=== PATIENT | male | born 1955 | race Caucasian/White ===

== ENCOUNTER 2022-07-20 18:44 | Inpatient (IN) | payer MEDICARE, OTHER ==
[~2022-07-20] VITALS: Ht 182.9 cm; Wt 101.8 kg
[2022-07-20] MEDS ORDERED: LORazepam 0.5 MG (ATIVAN) TABLET PO PRN (19:45)
[2022-07-20] MEDS ORDERED: ONDANSETRON 4 MG/2 ML (SDV) Z0FRAN IV PRN (19:45)
[2022-07-20] MEDS ORDERED: CALCIUM CARBONATE 500 MG (TUMS) TAB.CHEW PO PRN (19:45)
[2022-07-20] MEDS ORDERED: HYDROmorphone 2 MG/ML VIAL (DILAUDID) IV PRN (19:45)
[2022-07-20] MEDS ORDERED: diphenhydrAMINE 25 MG TAB (BENADRYL) PO PRN (19:45)
[2022-07-20] MEDS ORDERED: polyethylene glycoL POWDER 17 GM (MIRALAX) PACK PO PRN (19:45)
[2022-07-20] MEDS ORDERED: MELATONIN 3 MG TABLET PO PRN (19:45)
[2022-07-20] MEDS ORDERED: NS IV 500 ML 500 ML IV PRN (19:45)
[2022-07-20] MEDS ORDERED: DexMEDEtomidine 250 ML DRIP 250 ML IV SCH (19:45)
[2022-07-20] MEDS ORDERED: ANTACID SUSP 30 ML UDC (MYLANTA) PO PRN (19:45)
[2022-07-20] MEDS ORDERED: ONDANSETRON 4 MG (ZOFRAN) ORAL DISSOLVE TAB PO PRN (19:45)
[2022-07-20] MEDS ORDERED: diphenhydrAMINE 50 MG/ML INJ (BENADRYL) IVP PRN (19:45)
[2022-07-20] MEDS ORDERED: LACTULOSE SYRUP 10GM/15ML (ENULOSE) 30ML UDC PO PRN (19:45)
[2022-07-20] MEDS ORDERED: BISACODYL 10 MG SUPP (DULCOLAX) PR PRN (19:45)
[2022-07-20] MEDS ORDERED: LORazepam INJ 2 MG/ML (ATIVAN) VIAL IVP PRN (19:45)
[2022-07-20] MEDS ORDERED: LIDOCAINE UROJET 2% GEL 10 ML PKG TOP ONE (19:45)
[2022-07-20] MEDS ORDERED: ACETAMINOPHEN 325 MG TABLET PO PRN (19:45)
[2022-07-20] MEDS ORDERED: MILK OF MAGNESIA 400 MG/5 ML 30 ML UDC PO PRN (19:45)
--- NOTE | 2022-07-20 19:56 | History & Physical ---
History of Present Illness HPI/Chief Complaint CC: Acute hypoxic and hypercapneic respiratory failure with new onset AF HPI: This is a 66yoWM clinic patient of Dr Yu in [facility] and Dr [facility] who presented to the [facility] with dyspnea for several days. He was found to have new onset AF and findings consistent with volume overload with leg edema and pulmonary edema on CXR. Patient was taking Mucinex and he felt that made his dyspnea worse. Productive sputum of yellow phlem. 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 Nebs and O2 will be maintained. He smokes 1ppd and is and moved here from [place] 2 years ago and he is retired from 28 years with [employer]. D dimer was normal for his age at 0.94 and BNP normal at 45. Source: patient, family, RN/MD Exam Limitations: no limitations Date Seen 07/20/22 Time Seen by a Provider: 21:00 Attending Physician PCP Admitting Physician: Nora Goncalves DO Attending Physician: Nora Goncalves DO Referring Physician Date of Admission Home Medications & Allergies Home Medications Reviewed patient Home Medication Reconciliation performed by pharmacy medication reconciliations automation control technician and/or nursing. Patients Allergies have been reviewed. Allergies Allergies Coded Allergies No Known Drug Allergies (Unverified07/20/22) Past Mtbrydo-Bkxxja-Bsijmx Hx Past Med/Social Hx: Reviewed Nursing Past Med/Soc Hx, Reviewed and Corrections made Patient Social History Marrital Status: Employed/Student: retired Alcohol Use: Denies Use Recreational Drug Use: No Smoking Status: Current Everyday Smoker Past Medical History Respiratory: COPD Cardiac: High Cholesterol, Hypertension Review of Systems Constitutional: see HPI, malaise, weakness EENTM: no symptoms reported Respiratory: dyspnea on exertion, short of breath Cardiovascular: no symptoms reported Gastrointestinal: no symptoms reported Genitourinary: no symptoms reported Musculoskeletal: no symptoms reported Skin: no symptoms reported Psychiatric/Neurological: No Symptoms Reported All Other Systems Reviewed Negative Unless Noted: Yes Physical Exam Physical Exam Vital Signs Vital Signs - First Documented 07/21/22 00:00 FiO2 40 Capillary Refill : Height, Weight, BMI Height: '" Weight: lbs. oz. kg; BMI Method: General Appearance: WD/WN, Anxious, Chronically ill, Moderate Distress Eyes: Bilateral Eye Normal Inspection, Bilateral Eye PERRL HEENT: PERRL/EOMI, Normal ENT Inspection, Pharynx Normal Neck: Full Range of Motion, Normal Inspection, Non Tender, Supple, Carotid Bruit Respiratory: Chest Non Tender, No Respiratory Distress, Accessory Muscle Use, Crackles, Decreased Breath Sounds, Rales, Wheezing Cardiovascular: No Edema, No Gallop, No JVD, No Murmur, Normal Peripheral Pulses, Irregularly Irregular Gastrointestinal: Normal Bowel Sounds, No Organomegaly, No Pulsatile Mass, Non Tender, Soft Back: Normal Inspection, No CVA Tenderness, No Vertebral Tenderness Extremity: Normal Capillary Refill, Normal Inspection, Normal Range of Motion, Non Tender, No Calf Tenderness, No Pedal Edema Neurologic/Psychiatric: Alert, Oriented x3, No Motor/Sensory Deficits, Normal Mood/Affect, child care counselor II-XII Norm as Tested Skin: Normal Color, Warm/Dry Lymphatic: No Adenopathy Results Results/Procedures Labs Patient resulted labs reviewed. Assessment/Plan Admission Diagnosis Assessment: Acute hypoxic and hypercapneic respiratory failure New onset AF Volume overload Smoker AECOPD Bacterial bronchitis HTN HLP DM Plan: ICU BiPAP Nebs O2 ABG and CXR on arrival ICS Singulair Lovenox 1mg/kg ECHO tomorrow Admission Status: Inpatient Order (span 2 midnights) Reason for Inpatient Admission: resp failure NORA GONCALVES DO Jul 20, 2022 19:56
--- NOTE | 2022-07-20 21:29 | Tele-ICU Progress Note ---
Progress Note 66M with COPD, HTN, HLD, DM admitted with new afib and signs of heart failure. Presented to outside ED with several days dyspnea and peripheral edema. In ED found to have pulm edema as well. Has had cough productive of yellow sputum. On arrival to ICU, patient is comfortable. Sitting up in chair. - afib: new onset. Therapuetic lovenox given. Currently rate controlled in 80s with BP 168/127 - fluid overload: concerning for new heart failure. Cardiology consulted. Echo in AM. - COPD: neps, bipap PRN (currently on HFNC), supportive care. Solumedrol, singulair. - cough: with yellow sputum production. Empiric cefepime initiated for possible bacterial bronchitis. - DM: insuln sliding scale - tobacco dependence: replacement ordered. Will review CXR and labs when available. Patient assessed using real time audio visual communication system. CCT 13 min Focused Exam Height, Weight, BMI Height: '" Weight: lbs. oz. kg; BMI Method: REJI CARO MD Jul 20, 2022 21:29
[2022-07-20] MEDS ORDERED: RT-ALBUTEROL/IPRATROPIUM 3 ML (DUONEB) VIAL INH PRN (21:30)
--- NOTE | 2022-07-20 22:01 | Diagnostic Imaging Report ---
INDICATION: Dyspnea EXAMINATION: Chest 07/20/2022 COMPARISON: None. FINDINGS: The heart is prominent. Pulmonary vasculature unremarkable. There are no infiltrates or effusions with chronic interstitial changes consistent with scar or atelectasis at the bases. No pneumothorax. IMPRESSION: 1. Chronic findings. No acute cardiopulmonary process. Dictated by: Dictated on workstation # [id number]
[2022-07-20] MEDS ORDERED: LABETALOL HCL 20 MG/4 ML VIAL IV ONE (22:15)
[2022-07-20] MEDS ORDERED: LABETALOL HCL 20 MG/4 ML VIAL ONE (22:21)
[2022-07-20] MEDS: DOCUSATE SODIUM 100 MG (COLACE) CAP PO SCH (22:24)
[2022-07-20] MEDS: SENNOSIDES 8.6 MG (SENOKOT) TAB PO SCH (22:24)
[2022-07-20] MEDS: MONTELUKAST 10 MG (SINGULAIR) TAB PO SCH (22:24)
[2022-07-20] MEDS: inSUlin ASPART (NovoLOG) 1 UNIT/0.01 ML (CHARGE PER UNIT) SC SCH (22:39)
[2022-07-20] MEDS: RT-ALBUTEROL/IPRATROPIUM 3 ML (DUONEB) VIAL INH SCH (22:46)
[2022-07-20] MEDS: methylPREDNISolone 125 MG (Solu-MEDROL) VIAL IVP SCH (23:43)
[2022-07-20] MEDS: CEFEPIME INJECTION 1,000 MG in NS (IVPB) 50 ML IV SCH (23:43)
[2022-07-20 23:46] LABS: ABG OXYGEN SATURATION 94 % (94-100); ABG PCO2 61 MMHG (35-45); ABG PO2 66 MMHG (79-93); ABG TCO2 32.8 MMOL/L (21.0-31.0)
[2022-07-20 23:47] LABS: ALLENS TEST YES-POS; INSPIRED O2 6L; VENTILATOR NO
[2022-07-20 23:48] LABS: ABG PH 7.32 (7.37-7.43); PATIENT TEMP 36.5
[2022-07-21 00:09] VITALS: BP 167/102
[2022-07-21] MEDS: RT-ALBUTEROL/IPRATROPIUM 3 ML (DUONEB) VIAL INH SCH ×5 (02:41→19:02)
[2022-07-21 05:35] LABS: ABG BASE EXCESS 4.8 MMOL/L (-2.5-2.5); ABG OXYGEN SATURATION 94 % (94-100); ABG PCO2 58 MMHG (35-45); ABG PO2 64 MMHG (79-93); ABG TCO2 32.2 MMOL/L (21.0-31.0)
[2022-07-21 05:36] LABS: ALLENS TEST YES-POS; INSPIRED O2 6L; PATIENT TEMP 36.4; VENTILATOR NO
[2022-07-21 05:37] LABS: ABG PH 7.34 (7.37-7.43)
[2022-07-21] MEDS: CEFEPIME INJECTION 1,000 MG in NS (IVPB) 50 ML IV SCH ×4 (05:38→23:42)
[2022-07-21] MEDS: methylPREDNISolone 125 MG (Solu-MEDROL) VIAL IVP SCH ×4 (05:40→23:42)
[2022-07-21 05:53] LABS: BASOPHILS % (AUTO) 0 % (0-10); EOSINOPHILS % (AUTO) 0 % (0-10); HEMATOCRIT 45 % (40-54); HEMOGLOBIN 14.3 g/dL (13.3-17.7); LYMPHOCYTES # (AUTO) 0.5 10^3/uL (1.0-4.0); LYMPHOCYTES % (AUTO) 6 % (12-44); MEAN CORPUSCULAR HEMOGLOBIN 28 pg (25-34); MEAN CORPUSCULAR HGB CONC 32 g/dL (32-36); MEAN CORPUSCULAR VOLUME 87 fL (80-99); MEAN PLATELET VOLUME 10.8 fL (9.0-12.2); MONOCYTES # (AUTO) 0.1 10^3/uL (0.0-1.0); MONOCYTES % (AUTO) 1 % (0-12); NEUTROPHILS # (AUTO) 7.8 10^3/uL (1.8-7.8); NEUTROPHILS % (AUTO) 92 % (42-75); PLATELET COUNT 190 10^3/uL (130-400); WHITE BLOOD COUNT 8.5 10^3/uL (4.3-11.0)
[2022-07-21] MEDS ORDERED: ENOXAPARIN 100 MG/1 ML (LOVENOX) SYR SC SCH ×2 (06:00)
[2022-07-21 06:44] LABS: ALBUMIN 3.9 GM/DL (3.2-4.5); BILIRUBIN,TOTAL 0.9 MG/DL (0.1-1.0); CALCIUM 9.5 MG/DL (8.5-10.1); CREATININE SERUM 0.75 MG/DL (0.60-1.30); MAGNESIUM 1.9 MG/DL (1.6-2.4); PHOSPHORUS 3.7 MG/DL (2.3-4.7); POTASSIUM 3.8 MMOL/L (3.6-5.0); TOTAL PROTEIN 7.2 GM/DL (6.4-8.2)
[2022-07-21] MEDS: POTASSIUM CL 10MEQ/50ML IVPB 50 ML IV SCH (06:50)
[2022-07-21] MEDS: inSUlin ASPART (NovoLOG) 1 UNIT/0.01 ML (CHARGE PER UNIT) SC SCH ×4 (06:50→21:00)
[2022-07-21] MEDS: MAGNESIUM 1 GM/100 ML IVPB 100 ML IV SCH (06:51)
[2022-07-21] MEDS: KCL 20 MEQ TAB (K-DUR) PO SCH (06:51)
[2022-07-21 07:05] LABS: LYMPHOCYTES % (MANUAL) 6 %; MONOCYTES % (MANUAL) 1 %; NEUTROPHILS % (MANUAL) 93 %; RBC MORPH NORMAL
[2022-07-21 07:30] VITALS: BP 195/124
[2022-07-21] MEDS ORDERED: hydrALAZINE (APESOLINE) 20 MG/ML VIAL IV NR (08:00)
[2022-07-21] MEDS: NICOTINE 21 MG (NICODERM) PATCH TD SCH (08:05)
[2022-07-21] MEDS: DOCUSATE SODIUM 100 MG (COLACE) CAP PO SCH ×2 (08:05→20:59)
[2022-07-21] MEDS: SENNOSIDES 8.6 MG (SENOKOT) TAB PO SCH ×2 (08:06→20:59)
[2022-07-21] MEDS ORDERED: LABETALOL HCL 20 MG/4 ML VIAL IV NR (09:00)
--- NOTE | 2022-07-21 09:00 | Consultation-Cardiology ---
HPI-Cardiology Cardiology Consultation: Date of Consultation 07/21/22 Time Seen by a Provider: 08:40 Date of Admission 07-20-22 Attending Physician Admitting Physician Admitting Physician: Nora Goncalves DO Attending Physician: Nora Goncalves DO Consulting Physician Caitlyn Echols MD HPI: Chief Complaint: Respiratory failure Mr. Jones is a 66 yr old male admitted to ICU 9 from [facility] with respiratory distress. He is currently sitting in a recliner at the bedside with Bi-pap in place. Conversation is limited d/t Bi-pap and dyspnea. He does report increasing SOB over the last several weeks which became much worse yesterday. He reports fever this morning. He reports diarrhea. No c/o CP, palpitations. He reports some LE swelling a few days ago. He does report orthopnea. No n/v. Family x 1 at the bedside. Review of Systems-Cardiology Review of Systems Constitutional: No chills; fever, malaise Eyes: No vision change Ears/Nose/Throat: No epistaxis Respiratory: As described under HPI Cardiovascular: As described under HPI Gastrointestinal: As described under HPI Genitourinary: no symptoms reported Musculoskeletal: no symptoms reported Skin: No rash on exposed areas, No ulcerations on exposed areas Psychiatric/Neurological: No seizure, No focal weakness, No syncope Hematologic: No bleeding abnormalities All Other Systems Reviewed Negative Unless Noted: Yes LIW-Umuodf-Gpgohd Hx Patient Social History Marrital Status: Employed/Student: retired Smoking Status: Current Everyday Smoker Have you traveled recently?: No Alcohol Use?: No Pt feels they are or have been: No Tobacco type used: Cigarettes Past Medical History PMH As described under Assessment. Family Medical History Family Medical History: Unable to provide any history d/t significant dyspnea requiring BI-pap tx Allergies and Home Medications Allergies Coded Allergies: No Known Drug Allergies (Unverified , 07/20/22) Patient Home Medication List Albuterol Sulfate (Albuterol Sulfate) 2.5 Mg/3 Ml (0.083 %) Vial.neb, 3 ML NEB Q6H PRN for SHORTNESS OF BREATH, (Reported) Entered as Reported by: SAMUEL HAQUE on 07/21/22 7193 Last Action: Reviewed Albuterol Sulfate (Ventolin Hfa) 1 Puff Puff, 1-2 PUFF INH Q4H PRN for SHORTNESS OF BREATH, (Reported) Entered as Reported by: SAMUEL HAQUE on 07/21/221552 Last Action: Reviewed Atorvastatin Calcium (Atorvastatin Calcium) 40 Mg Tablet, 40 MG PO HS, (Reported) Entered as Reported by: SAMUEL HAQUE on 07/21/221552 Last Action: Edited Carvedilol (Carvedilol) 12.5 Mg Tablet, 12.5 MG PO BID, (Reported) Entered as Reported by: SAMUEL HAQUE on 07/21/221552 Last Action: Reviewed Fluticasone/Salmeterol (Advair 500-50 Diskus) 500 Mcg-50 Mcg/Dose Blst.w.dev, 1 PUFF INH BID, (Reported) Entered as Reported by: SAMUEL HAQUE on 07/22/221304 Last Action: Reviewed Lisinopril (Lisinopril) 30 Mg Tablet, 15 MG PO HS, (Reported) Entered as Reported by: SAMUEL HAQUE on 07/21/221552 Last Action: Reviewed Metformin HCl (Metformin HCl) 1,000 Mg Tablet, 1,000 MG PO BID, (Reported) Entered as Reported by: SAMUEL HAQUE on 07/21/221552 Last Action: Reviewed Nifedipine (Nifedipine ER) 60 Mg Tablet.er, 60 MG PO DAILY, (Reported) Entered as Reported by: SAMUEL HAQUE on 07/21/221552 Last Action: Reviewed Tiotropium [place] (Spiriva Respimat 2.5MCG/ACTUATION) 2.5 Mcg/Actuation Mist.inhal, 2 PUFF INH DAILY, (Reported) Entered as Reported by: SAMUEL HAQUE on 07/21/221552 Last Action: Reviewed Physical Exam-Cardiology Physical Exam Vital Signs/I&O 07/22/22 07/22/22 07/22/22 07/22/22 20:00 20:00 20:00 21:00 Temp 36.4 Pulse 75 66 Resp 19 19 B/P (MAP) 156/91 (112) 166/89 (114) Pulse Ox 93 92 93 O2 Delivery High Flow N/C High Flow N/C High Flow N/C O2 Flow Rate 10.00 10.00 10.00 07/22/22 07/22/22 07/22/22 07/22/22 22:00 23:00 23:03 23:49 Temp 36.6 Pulse 58 58 Resp 11 15 B/P (MAP) 161/82 (108) 159/87 (111) Pulse Ox 90 94 94 O2 Delivery High Flow N/C High Flow N/C High Flow N/C O2 Flow Rate 10.00 10.00 10.00 07/22/22 07/23/22 07/23/22 07/23/22 23:59 00:00 01:00 01:00 Pulse 71 55 56 Resp 12 34 B/P (MAP) 156/92 (113) 167/108 (127) Pulse Ox 91 92 90 O2 Delivery High Flow N/C High Flow N/C High Flow N/C O2 Flow Rate 10.00 10.00 10.00 07/23/22 07/23/22 07/23/22 07/23/22 02:00 03:00 03:00 04:00 Pulse 57 48 61 Resp 21 B/P (MAP) 162/91 (114) 157/103 (121) 170/96 (120) Pulse Ox 90 93 92 90 O2 Delivery High Flow N/C High Flow N/C High Flow N/C High Flow N/C O2 Flow Rate 10.00 10.00 10.00 10.00 07/23/22 07/23/22 07/23/22 07/23/22 04:16 04:25 05:00 06:00 Temp 36.0 Pulse 80 93 Resp 13 20 B/P (MAP) 143/97 (112) 152/91 (111) Pulse Ox 90 95 93 O2 Delivery High Flow N/C High Flow N/C High Flow N/C O2 Flow Rate 10.00 10.00 10.00 07/23/22 00:00 Intake Total 1440 ml Output Total 2175 ml Balance -735 ml Capillary Refill : Constitutional: AAO x 3, well-developed, well-nourished HEENT: PERRL, hearing is well preserved, oral hygience is good Neck: No carotid bruit; carotid pulses are 2 + bilaterally Respiratory: chest expansion is symmetric, chest is bilaterally symmetric, other (diminished lower lobes) Cardiovascular: regular rate-rhythm; No JVD; S1 and S2 Gastrointestinal: No tender; soft, audible bowel sounds Extremities: no lower extremity edema bilateral Neurologic/Psychiatric: grossly intact (moves all extremities) Skin: No rash on exposed areas, No ulcerations on exposed areas Data Review Labs Laboratory Tests 07/22/22 10:32: Glucometer 225H 07/22/22 15:49: Glucometer 265H 07/22/22 21:30: Glucometer 249H 07/23/22 03:33: White Blood Count 11.1H, Red Blood Count 5.15, Hemoglobin 14.2, Hematocrit 44, Mean Corpuscular Volume 86, Mean Corpuscular Hemoglobin 28, Mean Corpuscular Hemoglobin Concent 32, Red Cell Distribution Width 14.5, Platelet Count 218, Mean Platelet Volume 10.5, Immature Granulocyte % (Auto) 1, Neutrophils (%) (Auto) 91H, Lymphocytes (%) (Auto) 6L, Monocytes (%) (Auto) 3, Eosinophils (%) (Auto) 0, Basophils (%) (Auto) 0, Neutrophils # (Auto) 10.1H, Lymphocytes # (Auto) 0.6L, Monocytes # (Auto) 0.4, Eosinophils # (Auto) 0.0, Basophils # (Auto) 0.0, Immature Granulocyte # (Auto) 0.1, Sodium Level 140, Potassium Level 4.0, Chloride Level 101, Carbon Dioxide Level 29, Anion Gap 10, Blood Urea Nitrogen 18, Creatinine 0.83, Estimat Glomerular Filtration Rate 97, BUN/Creatinine Ratio 22, Glucose Level 223H, Calcium Level 9.3, Corrected Calcium 9.7, Phosphorus Level 3.1, Magnesium Level 2.3, Total Bilirubin 0.4, Aspartate Amino Transf (AST/SGOT) 9, Alanine Aminotransferase (ALT/SGPT) 16, Alkaline Phosphatase 87, Total Protein 6.3L, Albumin 3.5 07/23/22 04:35: Blood Gas Puncture Site LEFT RAD, Blood Gas Patient Temperature 36, Arterial Blood pH 7.46H, Arterial Blood Partial Pressure CO2 46H, Arterial Blood Partial Pressure O2 87, Arterial Blood HCO3 33H, Arterial Blood Total CO2 34.0H, Arterial Blood Oxygen Saturation 99, Arterial Blood Base Excess 8.2H, Hamilton Test YES-POS, Blood Gas Ventilator Setting NO, Blood Gas Inspired Oxygen 10L Microbiology 07/20/22 MRSA Screen - Final, Complete MRSA not isolated Radiology NAME: ERIBERTO JONES REC#: [id number] PT STATUS: ADM IN : 1955 PHYSICIAN: NORA GONCALVES DO ADMIT DATE: 07/20/22/ICU Signed Date of Exam:07/20/22 CHEST 1 VIEW, AP/PA ONLY INDICATION: Dyspnea EXAMINATION: Chest 07/20/2022 COMPARISON: None. FINDINGS: The heart is prominent. Pulmonary vasculature unremarkable. There are no infiltrates or effusions with chronic interstitial changes consistent with scar or atelectasis at the bases. No pneumothorax. IMPRESSION: 1. Chronic findings. No acute cardiopulmonary process. Dictated by: Dictated on workstation # [id number] Dict: 07/20/222150 Trans: 07/20/222221 [facility] [phone] Interpreted by: VIOLET DAWN MD Electronically signed by: VIOLET DAWN MD 07/20/222221 ECG Impression ECG Initial ECG Rhythm: Normal Sinus A/P-Cardiology Assessment/Admission Diagnosis PAF - as witnessed by Dr. Goncalves per report from [facility] on 07-20-22 - currently SR - newly dx Acute respiratory failure - likely d/t acute on chronic exacerbation of COPD HTN HLD Tobaccoism - cessation advised KIA - CPAP tx Discussion and Recomendations PAF reported per Dr. Goncalves on 07-20-22 at [facility] - new onset - currently SR with controlled rate - start OAC with Eliquis for stroke prophylaxis Acute respiratory failure likely d/t acute on chronic exacerbation of COPD - management per medical services Echocardiogram today to eval stucture and function HTN - BP not well controlled - continue home medications and adjust as tolerated Monitor lab closely Replace electrolytes as indicated Further recs will be based on his hospital course We would like to thank medical services for this consult KELLEN KAUR Jul 21, 2022 09:00
--- NOTE | 2022-07-21 09:01 | Diagnostic Imaging Report ---
INDICATION: Respiratory failure. Compared 07/20/2022. FINDINGS: No focal consolidation, failure, effusion or pneumothorax. IMPRESSION: No acute appearing abnormality Dictated by: Dictated on workstation # [id number]
[2022-07-21] MEDS ORDERED: amLODIPine 10 MG (NORVASC) TAB PO NR (09:30)
[2022-07-21] MEDS: ALPRAZolam 0.5 MG (XANAX) TAB PO PRN ×2 (09:34→21:08)
--- NOTE | 2022-07-21 09:37 | Tele-ICU Progress Note ---
Subjective Date Seen by a Provider: Jul 21, 2022 Time Seen by a Provider: 09:36 Subjective/Events-last exam (Tele-ICU Physician , Progress Note ) Service provided via interactive audio and video telecommunications E-CARE system to a patient admitted to ICU bed in [facility]. Patient is seen today due to persistent need of ICU care Available chart/ vitals / labs / Images reviewed Video assessment done using teleICU camera, rest of exam as per RN Discussed with RN Events overnight : Afebrile hemodynamically stable Respiratory - I/O = Drips: Pressors- no Consultants: Hospital course: A/P Acute hypoxic and hypercapneic respiratory failure with VO/AECOP and infection - on BIPAP 15/5 45% , [id number] - CPM < atlernate with NC if toletates - with dyspnea and afib one can consider PE , already on full AC , awai ECHO New onset AF- converted to sinus 07/21 - as per cards - AC with lovenox - ECHO pending AECOPD - cont br-dilators - on steroids IV - monitor LRTI - on cefepime HTN - in part related to WOB , anxiety - prn labetalol and hydralazine - echo pending Anxiety - prn xanax , ? might need precedex DM -ISS Lines : periph , (Central Line Necessity Reviewed) Trinh: void OG: Nutrition: Analgesia: Anxiety/ delirium VTE Prophylaxis: fill lovenox Stress Ulcer Prophylaxis: na Plans in collaboration with bedside consultants and IM MDs. Discussed with RN to reach out if any questions or concerns A total of _32 minutes of critical care time was devoted to this patient today, required to treat and/or prevent further deterioration of critical care condition ( as above ) . I am remotely monitoring this patient from another state. I am unable to do the bedside exam, and history/physical and pertinent information is taken from other notes in the computer and bedside staff. Sepsis Event Evaluation Height, Weight, BMI Height: '" Weight: lbs. oz. kg; 30.67 BMI Method: Exam Exam Patient acknowledged, consented, and participated in this virtual visit which was conducted using real time audio/video Vital Signs Date Time Temp Pulse Resp B/P (MAP) Pulse Ox O2 Delivery O2 Flow Rate FiO2 07/21/22 08:00 36.4 07/21/22 08:00 98 NIV Bilevel 40 07/21/22 08:00 90 27 182/123 (142) 92 NIV Bilevel 45.00 07/21/22 07:30 NIV Bilevel 45.00 07/21/22 07:01 89 07/21/22 07:00 85 21 191/157 (168) 92 Nasal Cannula 6.00 07/21/22 06:18 96 High Flow N/C 5.00 07/21/22 06:00 89 30 169/120 (136) 96 NIV Bilevel 40.00 07/21/22 05:15 92 27 159/110 (126) 94 NIV Bilevel 40.00 07/21/22 04:45 97 Nasal Cannula 6.00 07/21/22 02:00 87 18 157/125 (136) 98 NIV Bilevel 40.00 07/21/22 01:00 66 07/21/22 01:00 66 19 136/83 (100) 89 NIV Bilevel 40.00 07/21/22 00:09 71 33 96 40.00 07/21/22 00:00 36.7 77 27 167/102 (123) 96 NIV Bilevel 40.00 07/21/22 00:00 94 NIV Bilevel 40 07/20/22 23:32 89 179/76 07/20/22 23:04 94 High Flow N/C 6.00 07/20/22 23:00 81 30 176/116 (136) 95 NIV Bilevel 40.00 07/20/22 22:30 80 32 170/133 (145) 96 Nasal Cannula 6.00 07/20/22 22:00 90 30 185/97 (126) 93 Nasal Cannula 6.00 07/20/22 21:45 89 37 173/126 (142) 93 Nasal Cannula 6.00 07/20/22 21:30 90 35 165/119 (134) 95 Nasal Cannula 6.00 07/20/22 21:20 91 93 07/20/22 21:17 93 High Flow N/C 6.00 07/20/22 21:15 89 24 168/127 (141) 95 Nasal Cannula 6.00 07/20/22 21:00 Nasal Cannula 6.00 07/20/22 21:00 36.5 89 32 168/106 (126) 89 Nasal Cannula 6.00 07/20/22 21:00 91 I & O 1/25/23 07:00 Intake Total 400 ml Output Total 425 ml Balance -25 ml Height & Weight Height: '" Weight: lbs. oz. kg; 30.67 BMI Method: General Appearance: WD/WN, Anxious, Chronically ill, Moderate Distress HEENT: PERRL/EOMI, Normal ENT Inspection, Pharynx Normal Neck: Full Range of Motion, Normal Inspection, Non Tender, Supple, Carotid Bruit Respiratory: Chest Non Tender, No Respiratory Distress, Accessory Muscle Use, Crackles, Decreased Breath Sounds, Rales, Wheezing Cardiovascular: No Edema, No Gallop, No JVD, No Murmur, Normal Peripheral Pulses, Irregularly Irregular Extremity: Normal Capillary Refill, Normal Inspection, Normal Range of Motion, Non Tender, No Calf Tenderness, No Pedal Edema Neurologic/Psychiatric: Alert, Oriented x3, No Motor/Sensory Deficits, Normal Mood/Affect, manager transplant II-XII Norm as Tested Skin: Normal Color, Warm/Dry Lymphatic: No Adenopathy Results Lab Laboratory Tests 07/21/22 05:37 Assessment/Plan Assessment/Plan 1 ALESSANDRA SCHUMACHER MD Jul 21, 2022 09:37
[2022-07-21] MEDS ORDERED: APIXABAN 5 MG (ELIQUIS) TABLET PO ONE (09:45)
[2022-07-21 10:07] VITALS: BP 165/121
[2022-07-21] MEDS: RT--FLUTICASONE/SALMETEROL 113-14 (AIRDUO RespiCLICK) IH SCH (10:07)
[2022-07-21] MEDS ORDERED: inSUlin ASPART (NovoLOG) 1 UNIT/0.01 ML (CHARGE PER UNIT) SC SCH (11:00)
--- NOTE | 2022-07-21 12:54 | Consultation-Cardiology ---
HPI-Cardiology Cardiology Consultation: Date of Consultation 07/21/22 Time Seen by a Provider: 09:15 Date of Admission Attending Physician Admitting Physician Admitting Physician: Nora Peters DO Attending Physician: Nora Peters DO Consulting Physician JUSTINE MORALES MD, MA, FACP, FACC, [facility] [place], CCDS Physician requesting consult: Dr Peters HPI: Chief Complaint: Reason for Card consult: PAF witnessed by Dr Peters on monitoring manager at the [facility] prior to transfer to this hosp Mr. Mathias is a 66 yr old male admitted to ICU 9 [place] [facility] [place] with respiratory distress. He is currently sitting in a recliner at the bedside with Bi-pap in place. Conversation is limited d/t Bi-pap and dyspnea. He does report increasing SOB over the last several weeks which became much worse yesterday. He reports fever this morning. He reports diarrhea. No c/o CP, palpitations. He reports some LE swelling a few days ago. He does report orthopnea. No n/v. Family x 1 at the bedside. Review of Systems-Cardiology Review of Systems Constitutional: No chills; fever, malaise Eyes: No vision change Ears/Nose/Throat: No epistaxis Respiratory: As described under HPI Cardiovascular: As described under HPI Gastrointestinal: As described under HPI Genitourinary: no symptoms reported Musculoskeletal: no symptoms reported Skin: No rash on exposed areas, No ulcerations on exposed areas Psychiatric/Neurological: No seizure, No focal weakness, No syncope Hematologic: No bleeding abnormalities All Other Systems Reviewed Negative Unless Noted: Yes [id number] Hx Patient Social History Marrital Status: Employed/Student: retired Smoking Status: Current Everyday Smoker Have you traveled recently?: No Alcohol Use?: No Pt feels they are or have been: No Tobacco type used: Cigarettes Past Medical History PMH As described under Assessment. Family Medical History Family Medical History: Unable to provide any history d/t significant dyspnea requiring BI-pap tx Allergies and Home Medications Allergies Coded Allergies: No Known Drug Allergies (Unverified , 07/20/22) Patient Home Medication List Home Medication List Reviewed: Yes Physical Exam-Cardiology Physical Exam Vital Signs/I&O 07/21/22 07/21/22 07/21/22 07/21/22 01:00 01:00 02:00 04:45 Pulse 66 66 87 Resp 19 18 B/P (MAP) 136/83 (100) 157/125 (136) Pulse Ox 89 98 97 O2 Delivery NIV Bilevel NIV Bilevel Nasal Cannula O2 Flow Rate 40.00 40.00 6.00 07/21/22 07/21/22 07/21/22 07/21/22 05:15 06:00 06:18 07:00 Pulse 92 89 85 Resp 27 30 21 B/P (MAP) 159/110 (126) 169/120 (136) 191/157 (168) Pulse Ox 94 96 96 92 O2 Delivery NIV Bilevel NIV Bilevel High Flow N/C Nasal Cannula O2 Flow Rate 40.00 40.00 5.00 6.00 07/21/22 07/21/22 07/21/22 07/21/22 07:01 07:30 07:30 08:00 Pulse 89 84 90 Resp B/P (MAP) 182/123 (142) Pulse Ox 97 92 O2 Delivery NIV Bilevel NIV Bilevel O2 Flow Rate 45.00 45.00 45.00 07/21/22 07/21/22 07/21/22 07/21/22 08:00 08:00 09:00 10:00 Temp 36.4 Pulse 84 82 Resp 20 21 B/P (MAP) 146/112 (123) 165/121 (136) Pulse Ox 98 98 97 O2 Delivery NIV Bilevel NIV Bilevel NIV Bilevel O2 Flow Rate 45.00 45.00 FiO2 40 07/21/22 07/21/22 07/21/22 07/21/22 10:07 11:00 11:53 12:00 Temp 36.4 Pulse 71 74 65 Resp 21 B/P (MAP) 174/122 (139) 181/115 (137) Pulse Ox 94 98 94 O2 Delivery NIV Bilevel NIV Bilevel O2 Flow Rate 45.00 45.00 45.00 07/21/22 00:00 Intake Total 0 ml Output Total 300 ml Balance -300 ml Capillary Refill : Constitutional: AAO x 3, well-developed, well-nourished HEENT: PERRL, hearing is well preserved, oral hygience is good Neck: No carotid bruit; carotid pulses are 2 + bilaterally Respiratory: accessory muscle use, chest expansion is symmetric, chest is bilaterally symmetric, other (markedly diminished air entry, prolonged exp, exp wheezes) Cardiovascular: regular rate-rhythm; No JVD; S1 and S2 Gastrointestinal: No tender; soft, audible bowel sounds Extremities: no lower extremity edema bilateral Neurologic/Psychiatric: other (moves all limbs equally) Skin: No rash on exposed areas, No ulcerations on exposed areas Data Review Labs Laboratory Tests 07/20/22 22:30: Glucometer 179H 07/20/22 23:40: Blood Gas Puncture Site RRAD, Blood Gas Patient Temperature 36.5, Arterial Blood pH 7.32*L, Arterial Blood Partial Pressure CO2 61H, Arterial Blood Partial Pressure O2 66L, Arterial Blood HCO3 31H, Arterial Blood Total CO2 32.8H, Arterial Blood Oxygen Saturation 94, Arterial Blood Base Excess 5.0H, Hamilton Test YES-POS, Blood Gas Ventilator Setting NO, Blood Gas Inspired Oxygen 6L 07/21/22 05:25: Blood Gas Puncture Site R RAD, Blood Gas Patient Temperature 36.4, Arterial Blood pH 7.34*L, Arterial Blood Partial Pressure CO2 58H, Arterial Blood Partial Pressure O2 64L, Arterial Blood HCO3 30H, Arterial Blood Total CO2 32.2H, Arterial Blood Oxygen Saturation 94, Arterial Blood Base Excess 4.8H, Hamilton Test YES-POS, Blood Gas Ventilator Setting NO, Blood Gas Inspired Oxygen 6L 07/21/22 05:37: White Blood Count 8.5, Red Blood Count 5.14, Hemoglobin 14.3, Hematocrit 45, Mean Corpuscular Volume 87, Mean Corpuscular Hemoglobin 28, Mean Corpuscular Hemoglobin Concent 32, Red Cell Distribution Width 14.8H, Platelet Count 190, Mean Platelet Volume 10.8, Immature Granulocyte % (Auto) 1, Neutrophils (%) (Auto) 92H, Lymphocytes (%) (Auto) 6L, Monocytes (%) (Auto) 1, Eosinophils (%) (Auto) 0, Basophils (%) (Auto) 0, Neutrophils # (Auto) 7.8, Lymphocytes # (Auto) 0.5L, Monocytes # (Auto) 0.1, Eosinophils # (Auto) 0.0, Basophils # (Auto) 0.0, Immature Granulocyte # (Auto) 0.1, Neutrophils % (Manual) 93, Lymphocytes % (Manual) 6, Monocytes % (Manual) 1, Blood Morphology Comment NORMAL, Sodium Level 141, Potassium Level 3.8, Chloride Level 102, Carbon Dioxide Level 25, Anion Gap 14, Blood Urea Nitrogen 12, Creatinine 0.75, Estimat Glomerular Filtration Rate 100, BUN/Creatinine Ratio 16, Glucose Level 241H, Calcium Level 9.5, Corrected Calcium 9.6, Phosphorus Level 3.7, Magnesium Level 1.9, Total Bilirubin 0.9, Aspartate Amino Transf (AST/SGOT) 13, Alanine Aminotransferase (ALT/SGPT) 13, Alkaline Phosphatase 103, Total Protein 7.2, Albumin 3.9 07/21/22 10:34: Glucometer 220H A/P-Cardiology Assessment/Admission Diagnosis PAF - newly diagnosed, as witnessed [place] Dr. Peters [place] [facility] [place] - currently SR Acute respiratory failure - likely d/t acute on chronic exacerbation of COPD HTN HLD Tobaccoism - cessation advised KIA - CPAP tx Discussion and Recomendations PAF reported per Dr. Peters on 07-20-22 at [facility] [place] - new onset - currently SR with controlled rate - start OAC with Eliquis for stroke prophylaxis Acute respiratory failure likely d/t acute on chronic exacerbation of COPD - management per medical services Echocardiogram today to eval stucture and function HTN - BP not well controlled - continue home medications and adjust as tolerated Monitor lab closely Replace electrolytes as indicated Further recs will be based on his hospital course We would like to thank Medical services for this consult JUSTINE MORALES MD FACP FAC CCDS Jul 21, 2022 12:54
--- NOTE | 2022-07-21 13:04 | Progress Note ---
SAADCHEYANNE 07/21/22 1304: Subjective Subjective/Events-last exam Deion Mathias is a 66 yo M with a history of COPD, 1 ppd somking smoking, HTN, HLP and DM who resented to [facility] ER on 07/20 for dyspnea and a productive cough of several days duration. Yellow sputum production and lower extremity edema were noted and workup further revealed pulmonary edema on CXR and respiratory acidosis, hypercarbia, and hypoxia (7.34/59/46). He was admitted to the ICU for acute hypoxic and hypercapnic respiratory failure, volume overload, AECOPD, and bacterial bronchitis. During examination today he appeared mentally intact and comfortable on BiPAP. He noted some non-bloody diarrhea since last evening. He denies SOB, chest pain, palpitations, dizziness, or pain otherwise. Objective Exam Last Set of Vital Signs Vital Signs Date Time Temp Pulse Resp B/P (MAP) Pulse Ox O2 Delivery O2 Flow Rate FiO2 07/21/22 12:48 67 07/21/22 12:00 21 181/115 (137) 94 NIV Bilevel 45.00 07/21/22 11:53 36.4 07/21/22 08:00 40 Capillary Refill : I&O Intake and Output 07/21/22 00:00 Intake Total 0 ml Output Total 300 ml Balance -300 ml Intake Oral 0 ml Output Urine Total 300 ml Daily Weight Change No General: Alert, Oriented X3, Cooperative Lungs: Clear to Auscultation Heart: Regular Rate Abdomen: Normal Bowel Sounds Extremities: Other (mild edema LE bilaterally) Psych/Mental Status: Mental Status NL Results Lab Laboratory Tests 07/20/22 22:30: Glucometer 179H 07/20/22 23:40: Blood Gas Puncture Site RRAD, Blood Gas Patient Temperature 36.5, Arterial Blood pH 7.32*L, Arterial Blood Partial Pressure CO2 61H, Arterial Blood Partial Pressure O2 66L, Arterial Blood HCO3 31H, Arterial Blood Total CO2 32.8H, A rterial Blood Oxygen Saturation 94, Arterial Blood Base Excess 5.0H, Hamilton Test YES-POS, Blood Gas Ventilator Setting NO, Blood Gas Inspired Oxygen 6L 07/21/22 05:25: Blood Gas Puncture Site R RAD, Blood Gas Patient Temperature 36.4, Arterial Blood pH 7.34*L, Arterial Blood Partial Pressure CO2 58H, Arterial Blood Partial Pressure O2 64L, Arterial Blood HCO3 30H, Arterial Blood Total CO2 32.2H, Arterial Blood Oxygen Saturation 94, Arterial Blood Base Excess 4.8H, Hamilton Test YES-POS, Blood Gas Ventilator Setting NO, Blood Gas Inspired Oxygen 6L 07/21/22 05:37: White Blood Count 8.5, Red Blood Count 5.14, Hemoglobin 14.3, Hematocrit 45, Mean Corpuscular Volume 87, Mean Corpuscular Hemoglobin 28, Mean Corpuscular Hemoglobin Concent 32, Red Cell Distribution Width 14.8H, Platelet Count 190, Mean Platelet Volume 10.8, Immature Granulocyte % (Auto) 1, Neutrophils (%) (Auto) 92H, Lymphocytes (%) (Auto) 6L, Monocytes (%) (Auto) 1, Eosinophils (%) (Auto) 0, Basophils (%) (Auto) 0, Neutrophils # (Auto) 7.8, Lymphocytes # (Auto) 0.5L, Monocytes # (Auto) 0.1, Eosinophils # (Auto) 0.0, Basophils # (Auto) 0.0, Immature Granulocyte # (Auto) 0.1, Neutrophils % (Manual) 93, Lymphocytes % (Manual) 6, Monocytes % (Manual) 1, Blood Morphology Comment NORMAL, Sodium Level 141, Potassium Level 3.8, Chloride Level 102, Carbon Dioxide Level 25, Anion Gap 14, Blood Urea Nitrogen 12, Creatinine 0.75, Estimat Glomerular Filtration Rate 100, BUN/Creatinine Ratio 16, Glucose Level 241H, Calcium Level 9.5, Corrected Calcium 9.6, Phosphorus Level 3.7, Magnesium Level 1.9, Total Bilirubin 0.9, Aspartate Amino Transf (AST/SGOT) 13, Alanine Aminotransferase (ALT/SGPT) 13, Alkaline Phosphatase 103, Total Protein 7.2, Albumin 3.9 07/21/22 10:34: Glucometer 220H Assessment/Plan Assessment/Plan Assess & Plan/Chief Complaint Acute hypoxic and hypercapnic respiratory failure - 2/2 to AECOPD and/or bacterial bronchitis and/or volume overload - on BiPAP since 07/20 - ABG 7.34/58/64 today Bacterial bronchitis - Cefepime since 07/20 AECOPD - known history of 1ppd cigarette smoking and COPD - methylprednisone since 07/20 - duonebs since 07/20 - singular since 07/20 Volume overload - cause undetermined; ECHO scheduled for 07/21 - CXR on 07/21 negative for acute abnormality - CXR done at [facility] [place] [facility] (07/20) suggestive of pulmonary edema AFib (new onset) - currently in sinus rhythm with controlled rate - OAC with Eliquis since 07/20 Hypertension - labetolol since 07/20 - carvedilol since 07/21 Cigarette smoking - cessation advised Plan: continue BiPAP to improve hypercarbia. NORA GONCALVES DO 07/21/22 1630: Subjective Date Seen by a Provider: Jul 21, 2022 Time Seen by a Provider: 10:00 Subjective/Events-last exam CO2 narcosis issues last night BiPAP maintained In-depth conversation with son at bedside Review of Systems Pulmonary: Dyspnea, Cough Neurological: Confusion Objective Exam General: Alert, Oriented X3, Cooperative, No Acute Distress Lungs: Clear to Auscultation, Normal Air Movement Heart: Regular Rate, Normal S1, Normal S2, No Murmurs Psych/Mental Status: Mental Status NL, Mood NL Supervisory-Addendum Brief Verification & Attestation Participated in pt care: history, MDM, physical Personally performed: exam, history, MDM, supervision of care Care discussed with: Medical Student Procedures: n/a Results interpretation: Verified all documentation Verification and Attestation of Medical Student E/M Service A medical student performed and documented this service in my presence. I reviewed and verified all information documented by the medical student and made modifications to such information, when appropriate. I personally performed the physical exam and medical decision making. Nora Goncalves Jul 21, 2022,16:29 CHEYANNE NASH Jul 21, 2022 13:04 NORA GONCALVES DO Jul 21, 2022 16:30
[2022-07-21 14:42] VITALS: BP 152/88
[2022-07-21] MEDS ORDERED: ALBU2.5V4 NEB (15:53)
[2022-07-21] MEDS ORDERED: NFD60TCR PO (15:53)
[2022-07-21] MEDS ORDERED: LISI30TA5 PO (15:53)
[2022-07-21] MEDS ORDERED: ATOR40TA70 PO (15:53)
[2022-07-21] MEDS ORDERED: METF-399 PO (15:53)
[2022-07-21] MEDS ORDERED: RT-ALBUINH INH (15:53)
[2022-07-21] MEDS ORDERED: CARV12.53 PO (15:53)
[2022-07-21] MEDS ORDERED: TIOT4MIS2 INH (15:53)
[2022-07-21 19:02] VITALS: BP 167/97
[2022-07-21] MEDS: MONTELUKAST 10 MG (SINGULAIR) TAB PO SCH (20:59)
[2022-07-21] MEDS: APIXABAN 5 MG (ELIQUIS) TABLET PO SCH (20:59)
[2022-07-21 22:35] VITALS: BP 150/81
[2022-07-21] MEDS: RT-ALBUTEROL SULF 2.5 MG/3 ML PRE-MIX VIAL INH SCH (22:35)
[2022-07-21] MEDS: RT-IPRATROPIUM (ATROVENT) 0.5MG/2.5ML AMP IH SCH (22:35)
[2022-07-22 02:05] VITALS: BP 157/90
[2022-07-22] MEDS: RT-ALBUTEROL SULF 2.5 MG/3 ML PRE-MIX VIAL INH SCH ×6 (02:05→23:03)
[2022-07-22] MEDS: RT-IPRATROPIUM (ATROVENT) 0.5MG/2.5ML AMP IH SCH ×6 (02:05→23:03)
[2022-07-22] MEDS: inSUlin ASPART (NovoLOG) 1 UNIT/0.01 ML (CHARGE PER UNIT) SC SCH ×4 (05:13→21:35)
[2022-07-22] MEDS: methylPREDNISolone 125 MG (Solu-MEDROL) VIAL IVP SCH ×3 (05:13→17:59)
[2022-07-22] MEDS: CEFEPIME INJECTION 1,000 MG in NS (IVPB) 50 ML IV SCH ×4 (05:14→23:46)
[2022-07-22 05:49] LABS: BASOPHILS % (AUTO) 0 % (0-10); EOSINOPHILS % (AUTO) 0 % (0-10); HEMATOCRIT 43 % (40-54); HEMOGLOBIN 13.4 g/dL (13.3-17.7); LYMPHOCYTES # (AUTO) 0.7 10^3/uL (1.0-4.0); LYMPHOCYTES % (AUTO) 7 % (12-44); MEAN CORPUSCULAR HEMOGLOBIN 27 pg (25-34); MEAN CORPUSCULAR HGB CONC 32 g/dL (32-36); MEAN CORPUSCULAR VOLUME 87 fL (80-99); MEAN PLATELET VOLUME 10.8 fL (9.0-12.2); MONOCYTES # (AUTO) 0.4 10^3/uL (0.0-1.0); MONOCYTES % (AUTO) 4 % (0-12); NEUTROPHILS # (AUTO) 8.9 10^3/uL (1.8-7.8); NEUTROPHILS % (AUTO) 88 % (42-75); PLATELET COUNT 189 10^3/uL (130-400); WHITE BLOOD COUNT 10.2 10^3/uL (4.3-11.0)
--- NOTE | 2022-07-22 06:08 | Progress Note ---
Subjective Date Seen by a Provider: Jul 22, 2022 Time Seen by a Provider: 11:00 Subjective/Events-last exam Improved status BiPAP alternating with O2 NC Regular diet initiated Overall more lucid Review of Systems General: Fatigue, Malaise Pulmonary: Dyspnea Objective Exam Last Set of Vital Signs Vital Signs Date Time Temp Pulse Resp B/P (MAP) Pulse Ox O2 Delivery O2 Flow Rate FiO2 07/22/22 06:00 63 16 159/92 (114) 92 NIV Bilevel 50.00 07/22/22 04:00 40 07/22/22 04:00 36.2 Capillary Refill : I&O Intake and Output 07/22/22 00:00 Intake Total 1040 ml Output Total 950 ml Balance 90 ml Intake Oral 990 ml IV Total 50 ml Output Urine Total 950 ml # Voids 1 General: Alert, Oriented X3, Cooperative, No Acute Distress Lungs: Clear to Auscultation, Normal Air Movement Heart: Regular Rate, Normal S1, Normal S2, No Murmurs Psych/Mental Status: Mental Status NL, Mood NL Results Lab Laboratory Tests 07/21/22 10:34: Glucometer 220H 07/21/22 15:50: Glucometer 220H 07/21/22 20:05: Glucometer 324H 07/22/22 05:07: White Blood Count 10.2, Red Blood Count 4.89, Hemoglobin 13.4, Hematocrit 43, Mean Corpuscular Volume 87, Mean Corpuscular Hemoglobin 27, Mean Corpuscular Hemoglobin Concent 32, Red Cell Distribution Width 14.7H, Platelet Count 189, Mean Platelet Volume 10.8, Immature Granulocyte % (Auto) 1, Neutrophils (%) (Auto) 88H, Lymphocytes (%) (Auto) 7L, Monocytes (%) (Auto) 4, Eosinophils (%) (Auto) 0, Basophils (%) (Auto) 0, Neutrophils # (Auto) 8.9H, Lymphocytes # (Auto) 0.7L, Monocytes # (Auto) 0.4, Eosinophils # (Auto) 0.0, Basophils # (Auto) 0.0, Immature Granulocyte # (Auto) 0.1 07/22/22 05:10: Glucometer 225H Microbiology 07/20/22 MRSA Screen - Final, Complete MRSA not isolated Assessment/Plan Assessment/Plan Assess & Plan/Chief Complaint Assessment: Acute hypoxic and hypercapneic respiratory failure New onset AF Volume overload Smoker AECOPD Bacterial bronchitis HTN HLP DM Plan: ICU BiPAP Nebs O2 ICS LEONELA Springer DO Jul 22, 2022 06:08
[2022-07-22 06:10] LABS: ALBUMIN 3.3 GM/DL (3.2-4.5); POTASSIUM 4.1 MMOL/L (3.6-5.0)
[2022-07-22 06:11] LABS: CALCIUM 9.2 MG/DL (8.5-10.1)
[2022-07-22 06:13] LABS: TOTAL PROTEIN 6.1 GM/DL (6.4-8.2)
[2022-07-22 06:14] LABS: BILIRUBIN,TOTAL 0.3 MG/DL (0.1-1.0)
[2022-07-22 06:16] LABS: PHOSPHORUS 3.4 MG/DL (2.3-4.7)
[2022-07-22 06:17] LABS: CREATININE SERUM 0.75 MG/DL (0.60-1.30)
[2022-07-22 06:17] LABS: ABG BASE EXCESS 7.2 MMOL/L (-2.5-2.5); ABG OXYGEN SATURATION 95 % (94-100); ABG PCO2 59 MMHG (35-45); ABG PH 7.36 (7.37-7.43); ABG PO2 65 MMHG (79-93); ABG TCO2 34.6 MMOL/L (21.0-31.0)
[2022-07-22 06:18] LABS: INSPIRED O2 45%; PATIENT TEMP 97.4; VENTILATOR NO
[2022-07-22 06:19] LABS: MAGNESIUM 2.2 MG/DL (1.6-2.4)
[2022-07-22] MEDS: POTASSIUM CL 10MEQ/50ML IVPB 50 ML IV SCH (07:31)
[2022-07-22] MEDS: MAGNESIUM 1 GM/100 ML IVPB 100 ML IV SCH (07:32)
[2022-07-22] MEDS: KCL 20 MEQ TAB (K-DUR) PO SCH (07:32)
[2022-07-22] MEDS: SENNOSIDES 8.6 MG (SENOKOT) TAB PO SCH ×2 (08:06→21:03)
[2022-07-22] MEDS: DOCUSATE SODIUM 100 MG (COLACE) CAP PO SCH ×2 (08:06→21:03)
[2022-07-22] MEDS: NICOTINE 21 MG (NICODERM) PATCH TD SCH (08:06)
[2022-07-22] MEDS: amLODIPine 10 MG (NORVASC) TAB PO SCH (08:06)
[2022-07-22] MEDS: APIXABAN 5 MG (ELIQUIS) TABLET PO SCH ×2 (08:06→20:14)
--- NOTE | 2022-07-22 08:29 | Progress Note - Cardiology ---
Cardiology SOAP Progress Note Subjective: Sitting up in bed States his SOB is improved, but not yet back to baseline No c/o CP or palpitations Objective: I&O/Vital Signs 07/22/22 07/22/22 07/22/22 07/22/22 20:00 20:00 20:00 21:00 Temp 36.4 Pulse 75 66 Resp 19 19 B/P (MAP) 156/91 (112) 166/89 (114) Pulse Ox 93 92 93 O2 Delivery High Flow N/C High Flow N/C High Flow N/C O2 Flow Rate 10.00 10.00 10.00 07/22/22 07/22/22 07/22/22 07/22/22 22:00 23:00 23:03 23:49 Temp 36.6 Pulse 58 58 Resp 11 15 B/P (MAP) 161/82 (108) 159/87 (111) Pulse Ox 90 94 94 O2 Delivery High Flow N/C High Flow N/C High Flow N/C O2 Flow Rate 10.00 10.00 10.00 07/22/22 07/23/22 07/23/22 07/23/22 23:59 00:00 01:00 01:00 Pulse 71 55 56 Resp 12 34 B/P (MAP) 156/92 (113) 167/108 (127) Pulse Ox 91 92 90 O2 Delivery High Flow N/C High Flow N/C High Flow N/C O2 Flow Rate 10.00 10.00 10.00 07/23/22 07/23/22 07/23/22 07/23/22 02:00 03:00 03:00 04:00 Pulse 57 48 61 Resp 21 B/P (MAP) 162/91 (114) 157/103 (121) 170/96 (120) Pulse Ox 90 93 92 90 O2 Delivery High Flow N/C High Flow N/C High Flow N/C High Flow N/C O2 Flow Rate 10.00 10.00 10.00 10.00 07/23/22 07/23/22 07/23/22 07/23/22 04:16 04:25 05:00 06:00 Temp 36.0 Pulse 80 93 Resp 13 20 B/P (MAP) 143/97 (112) 152/91 (111) Pulse Ox 90 95 93 O2 Delivery High Flow N/C High Flow N/C High Flow N/C O2 Flow Rate 10.00 10.00 10.00 07/23/22 00:00 Intake Total 1440 ml Output Total 2175 ml Balance -735 ml Constitutional: AAO x 3, well-developed, well-nourished Respiratory: accessory muscle use, chest expansion is symmetric, chest is bilaterally symmetric, other (markedly diminished air entry, prolonged exp, exp wheezes) Cardiovascular: regular rate-rhythm; No JVD; S1 and S2 Gastrointestional: No tender; soft, audible bowel sounds Extremities: no lower extremity edema bilateral Neurologic/Psychiatric: other (moves all limbs equally) Skin: No rash on exposed areas, No ulcerations on exposed areas Results/Procedures: Labs Laboratory Tests 07/22/22 10:32: Glucometer 225H 07/22/22 15:49: Glucometer 265H 07/22/22 21:30: Glucometer 249H 07/23/22 03:33: White Blood Count 11.1H, Red Blood Count 5.15, Hemoglobin 14.2, Hematocrit 44, Mean Corpuscular Volume 86, Mean Corpuscular Hemoglobin 28, Mean Corpuscular Hemoglobin Concent 32, Red Cell Distribution Width 14.5, Platelet Count 218, Mean Platelet Volume 10.5, Immature Granulocyte % (Auto) 1, Neutrophils (%) (Auto) 91H, Lymphocytes (%) (Auto) 6L, Monocytes (%) (Auto) 3, Eosinophils (%) (Auto) 0, Basophils (%) (Auto) 0, Neutrophils # (Auto) 10.1H, Lymphocytes # (Auto) 0.6L, Monocytes # (Auto) 0.4, Eosinophils # (Auto) 0.0, Basophils # (Auto) 0.0, Immature Granulocyte # (Auto) 0.1, Sodium Level 140, Potassium Level 4.0, Chloride Level 101, Carbon Dioxide Level 29, Anion Gap 10, Blood Urea Nitrogen 18, Creatinine 0.83, Estimat Glomerular Filtration Rate 97, BUN/Crea tinine Ratio 22, Glucose Level 223H, Calcium Level 9.3, Corrected Calcium 9.7, Phosphorus Level 3.1, Magnesium Level 2.3, Total Bilirubin 0.4, Aspartate Amino Transf (AST/SGOT) 9, Alanine Aminotransferase (ALT/SGPT) 16, Alkaline Phosph atase 87, Total Protein 6.3L, Albumin 3.5 07/23/22 04:35: Blood Gas Puncture Site LEFT RAD, Blood Gas Patient Temperature 36, Arterial Blood pH 7.46H, Arterial Blood Partial Pressure CO2 46H, Arterial Blood Partial Pressure O2 87, Arterial Blood HCO3 33H, Arterial Blood Total CO2 34.0H, Arterial Blood Oxygen Saturation 99, Arterial Blood Base Excess 8.2H, Hamilton Test YES-POS, Blood Gas Ventilator Setting NO, Blood Gas Inspired Oxygen 10L Microbiology 07/20/22 MRSA Screen - Final, Complete MRSA not isolated A/P: Assessment: PAF - newly diagnosed, as witnessed by Dr. Peters at [facility] [place] - currently maintaing SR - Continue OAC with Eliquis Acute respiratory failure - likely d/t acute on chronic exacerbation of COPD HTN - not well controlled HLD Tobaccoism - cessation advised KIA - CPAP tx Plan: PAF reported per Dr. Peters on 07-20-22 at [facility] [place] - new onset - currently SR with controlled rate - continue OAC with Eliquis for stroke prophylaxis Echocardiogram pending Acute respiratory failure likely d/t acute on chronic exacerbation of COPD - management per medical services HTN - BP not well controlled - titrate antihypertensive regimen Monitor lab closely Replace electrolytes as indicated KELLEN KAUR Jul 22, 2022 08:29
[2022-07-22] MEDS: RT--FLUTICASONE/SALMETEROL 113-14 (AIRDUO RespiCLICK) IH SCH ×2 (08:55→19:31)
--- NOTE | 2022-07-22 08:58 | Diagnostic Imaging Report ---
CHEST 1 VIEW, AP/PA ONLY Indication: Dyspnea. Comparison: 07/21/2022 Findings: Stable enlargement of cardiac silhouette. A small amount of atelectasis has developed in the right lung base. No pleural effusion or pneumothorax. Impression: 1. New right basilar opacities favor atelectasis. Dictated by: Dictated on workstation # [id number]
[2022-07-22] MEDS: lisINopril 20 MG (PRINIVIL) TABLET PO SCH (09:46)
--- NOTE | 2022-07-22 12:16 | Tele-ICU Progress Note ---
Subjective Date Seen by a Provider: Jul 22, 2022 Time Seen by a Provider: 12:16 Subjective/Events-last exam (Tele-ICU Physician , Progress Note ) Service provided via interactive audio and video telecommunications E-CARE system to a patient admitted to ICU bed in [facility]. Patient is seen today due to persistent need of ICU care Available chart/ vitals / labs / Images reviewed Video assessment done using teleICU camera, rest of exam as per RN Discussed with RN Events overnight : Afebrile hemodynamically stable Respiratory - 8L I/O = even Drips: Pressors- no Consultants: Hospital course: (07/20) 66M Admitted for COPD/bronchitis, new onset Afib, CHF, HTN 07/21- BIPAP 15/ 45% , [id number] 07/22 - 8l NC A/P Acute hypoxic and acute on chronic hypercapneic respiratory failure with VO/AECOP and infection - will cont o2 ny NC or VT , wse NIPPV prn - IS , OOB , might need diuresis - await echo New onset AF- converted to sinus 07/21 - as per cards - AC with eliquis AECOPD - cont br-dilators - on steroids IV - Sm 60 q 6 monitor LRTI - on cefepime HTN - in part related to WOB , anxiety - as per cardiology - echo pending Anxiety - prn xanax , did not need precedex DM -ISS KIA - suspected - cont NIPPV at night Lines : periph , (Central Line Necessity Reviewed) Trinh: void OG: Nutrition: Analgesia: Anxiety/ delirium VTE Prophylaxis: eliquis Stress Ulcer Prophylaxis: na Plans in collaboration with bedside consultants and IM MDs. Discussed with RN to reach out if any questions or concerns A total of _32 minutes of critical care time was devoted to this patient today, required to treat and/or prevent further deterioration of critical care condition ( as above ) . I am remotely monitoring this patient from another state. I am unable to do the bedside exam, and history/physical and pertinent information is taken from other notes in the computer and bedside staff. Sepsis Event Evaluation Height, Weight, BMI Height: '" Weight: lbs. oz. kg; 30.67 BMI Method: Exam Exam Patient acknowledged, consented, and participated in this virtual visit which was conducted using real time audio/video Vital Signs Date Time Temp Pulse Resp B/P (MAP) Pulse Ox O2 Delivery O2 Flow Rate FiO2 07/22/22 12:00 62 93 151/95 (113) 93 High Flow N/C 8.00 07/22/22 12:00 36.0 07/22/22 11:26 93 High Flow N/C 10.00 07/22/22 11:00 77 12 153/102 (119) 91 High Flow N/C 8.00 07/22/22 10:00 73 15 155/77 (103) 93 High Flow N/C 8.00 07/22/22 09:00 67 11 109/36 (60) 94 High Flow N/C 8.00 07/22/22 08:00 36.4 07/22/22 08:00 93 High Flow N/C 40 07/22/22 08:00 62 28 171/108 (129) 92 High Flow N/C 8.00 07/22/22 07:00 56 07/22/22 07:00 57 26 166/95 (118) 91 NIV Bilevel 50.00 07/22/22 06:00 63 16 159/92 (114) 92 NIV Bilevel 50.00 07/22/22 05:00 57 16 168/93 (118) 90 NIV Bilevel 50.00 07/22/22 04:00 97 NIV Bilevel 40 07/22/22 04:00 62 26 160/91 (114) 91 NIV Bilevel 50.00 07/22/22 04:00 36.2 07/22/22 03:00 76 28 155/97 (116) 94 NIV Bilevel 50.00 07/22/22 02:05 58 24 91 45.00 07/22/22 02:00 64 19 157/98 (117) 94 NIV Bilevel 50.00 07/22/22 01:25 NIV Bilevel 50.00 07/22/22 01:00 64 18 151/92 (111) 94 NIV Bilevel 45.00 07/22/22 01:00 64 07/22/22 00:00 66 28 152/89 (110) 92 NIV Bilevel 45.00 07/21/22 23:50 97 NIV Bilevel 40 07/21/22 23:50 36.3 07/21/22 23:00 65 22 147/83 (104) 91 NIV Bilevel 45.00 07/21/22 22:35 64 24 90 45.00 07/21/22 22:00 65 22 150/81 (104) 91 NIV Bilevel 45.00 07/21/22 21:00 68 30 156/94 (114) 92 NIV Bilevel 45.00 07/21/22 20:00 73 27 137/73 (94) 91 NIV Bilevel 45.00 07/21/22 19:44 36.2 07/21/22 19:30 87 26 152/83 (122) 97 NIV Bilevel 45.00 07/21/22 19:30 97 NIV Bilevel 40 07/21/22 19:02 79 26 92 45.00 07/21/22 19:00 83 17 167/97 (120) 90 Nasal Cannula 2.00 07/21/22 19:00 80 07/21/22 18:00 80 29 164/90 (114) 90 Nasal Cannula 2.00 07/21/22 17:00 70 18 154/93 (113) 92 NIV Bilevel 45.00 07/21/22 16:00 66 23 153/98 (116) NIV Bilevel 45.00 07/21/22 15:32 36.3 07/21/22 15:30 97 NIV Bilevel 40 07/21/22 15:00 67 24 157/104 (121) NIV Bilevel 45.00 07/21/22 14:42 69 25 94 45.00 07/21/22 14:00 83 34 162/101 (121) NIV Bilevel 45.00 07/21/22 13:00 66 14 209/115 (146) 97 NIV Bilevel 45.00 07/21/22 12:48 67 I & O 07/22/22 07:00 Intake Total 890 ml Output Total 1300 ml Balance -410 ml Height & Weight Height: '" Weight: lbs. oz. kg; 30.67 BMI Method: General Appearance: WD/WN, Anxious, Chronically ill, Moderate Distress HEENT: PERRL/EOMI, Normal ENT Inspection, Pharynx Normal Neck: Full Range of Motion, Normal Inspection, Non Tender, Supple, Carotid Bruit Respiratory: Chest Non Tender, No Respiratory Distress, Accessory Muscle Use, Crackles, Decreased Breath Sounds, Rales, Wheezing Cardiovascular: No Edema, No Gallop, No JVD, No Murmur, Normal Peripheral Pulses, Irregularly Irregular Extremity: Normal Capillary Refill, Normal Inspection, Normal Range of Motion, Non Tender, No Calf Tenderness, No Pedal Edema Neurologic/Psychiatric: Alert, Oriented x3, No Motor/Sensory Deficits, Normal 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
[2022-07-22] MEDS ORDERED: FLUT1DIS27 INH (13:05)
--- NOTE | 2022-07-22 16:53 | Progress Note - Cardiology ---
Cardiology SOAP Progress Note Subjective: Gen malaise and weakness No cp or palp or syncope Shortness of breath modestly improved No n/v/d No focal weakness Objective: I&O/Vital Signs 07/22/22 07/22/22 07/22/22 07/22/22 05:00 06:00 06:30 07:00 Pulse 57 63 57 Resp 16 16 26 B/P (MAP) 168/93 (118) 159/92 (114) 166/95 (118) Pulse Ox 90 92 94 91 O2 Delivery NIV Bilevel NIV Bilevel High Flow N/C NIV Bilevel O2 Flow Rate 50.00 50.00 6.00 50.00 07/22/22 07/22/22 07/22/22 07/22/22 07:00 08:00 08:00 08:00 Temp 36.4 Pulse 56 62 Resp 28 B/P (MAP) 171/108 (129) Pulse Ox 92 93 O2 Delivery High Flow N/C High Flow N/C O2 Flow Rate 8.00 FiO2 40 07/22/22 07/22/22 07/22/22 07/22/22 08:55 09:00 10:00 10:00 Pulse 67 73 Resp 11 15 B/P (MAP) 109/36 (60) 155/77 (103) Pulse Ox 92 94 94 93 O2 Delivery High Flow N/C High Flow N/C High Flow N/C High Flow N/C O2 Flow Rate 8.00 8.00 8.00 8.00 07/22/22 07/22/22 07/22/22 07/22/22 11:00 11:26 12:00 12:00 Temp 36.0 Pulse 77 62 Resp 12 18 B/P (MAP) 153/102 (119) 151/95 (113) Pulse Ox 91 93 93 O2 Delivery High Flow N/C High Flow N/C High Flow N/C O2 Flow Rate 8.00 10.00 8.00 07/22/22 07/22/22 07/22/22 07/22/22 13:00 13:00 14:00 14:15 Pulse 80 81 74 Resp 23 23 B/P (MAP) 162/100 (120) 155/88 (110) Pulse Ox 91 91 93 O2 Delivery High Flow N/C High Flow N/C High Flow N/C O2 Flow Rate 8.00 8.00 10.00 07/22/22 07/22/22 07/22/22 15:00 15:27 16:00 Pulse 73 71 Resp 33 59 B/P (MAP) 155/92 (113) 157/95 (115) Pulse Ox 94 93 93 O2 Delivery High Flow N/C High Flow N/C High Flow N/C O2 Flow Rate 8.00 10.00 8.00 07/22/22 00:00 Intake Total 590 ml Output Total 675 ml Balance -85 ml Constitutional: AAO x 3, well-developed, well-nourished Respiratory: accessory muscle use, chest expansion is symmetric, chest is bilaterally symmetric, other (markedly diminished air entry, prolonged exp, exp wheezes) Cardiovascular: regular rate-rhythm; No JVD; S1 and S2 Gastrointestional: No tender; soft, audible bowel sounds Extremities: no lower extremity edema bilateral Neurologic/Psychiatric: other (moves all limbs equally) Skin: No rash on exposed areas, No ulcerations on exposed areas Results/Procedures: Labs Laboratory Tests 07/21/22 20:05: Glucometer 324H 07/22/22 05:07: White Blood Count 10.2, Red Blood Count 4.89, Hemoglobin 13.4, Hematocrit 43, Mean Corpuscular Volume 87, Mean Corpuscular Hemoglobin 27, Mean Corpuscular Hemoglobin Concent 32, Red Cell Distribution Width 14.7H, Platelet Count 189, Mean Platelet Volume 10.8, Immature Granulocyte % (Auto) 1, Neutrophils (%) (Auto) 88H, Lymphocytes (%) (Auto) 7L, Monocytes (%) (Auto) 4, Eosinophils (%) (Auto) 0, Basophils (%) (Auto) 0, Neutrophils # (Auto) 8.9H, Lymphocytes # (Auto) 0.7L, Monocytes # (Auto) 0.4, Eosinophils # (Auto) 0.0, Basophils # (Auto) 0.0, Immature Granulocyte # (Auto) 0.1, Sodium Level 140, Potassium Level 4.1, Chloride Level 103, Carbon Dioxide Level 28, Anion Gap 9, Blood Urea Nitrogen 15, Creatinine 0.75, Estimat Glomerular Filtration Rate 100, BUN/Creatinine Ratio 20, Glucose Level 234H, Calcium Level 9.2, Corrected Calcium 9.8, Phosphorus Level 3.4, Magnesium Level 2.2, Total Bilirubin 0.3, Aspartate Amino Transf (AST/SGOT) 10, Alanine Aminotransferase (ALT/SGPT) 14, Alkaline Phosphatase 92, Total Protein 6.1L, Albumin 3.3 07/22/22 05:10: Glucometer 225H 07/22/22 06:17: Blood Gas Puncture Site R WRIST, Blood Gas Patient Temperature 97.4, Arterial Blood pH 7.36L, Arterial Blood Partial Pressure CO2 59H, Arterial Blood Partial Pressure O2 65L, Arterial Blood HCO3 33H, Arterial Blood Total CO2 34.6H, Arterial Blood Oxygen Saturation 95, Arterial Blood Base Excess 7.2H, Hamilton Test NA, Blood Gas Ventilator Setting NO, Blood Gas Inspired Oxygen 45% 07/22/22 10:32: Glucometer 225H 07/22/22 15:49: Glucometer 265H Microbiology 07/20/22 MRSA Screen - Final, Complete MRSA not isolated A/P: Assessment: PAF - newly diagnosed, [place] [facility] [place] - currently maintaing SR - Continue OAC with Eliquis - Echo on 07/21/22: LVEF 60-65%, mild enlargement of both atria, PASP 40-45 mmHg Acute respiratory failure - likely d/t acute on chronic exacerbation of COPD HTN - not well controlled HLD Tobaccoism - cessation advised KIA - CPAP tx Plan: - continue OAC with Eliquis for stroke prophylaxis - management of ARF is with the medical services - BP not well controlled - titrate antihypertensive regimen - Monitor lab closely JUSTINE MORALES MD [facility] CCDS Jul 22, 2022 16:53
[2022-07-22] MEDS: MONTELUKAST 10 MG (SINGULAIR) TAB PO SCH (20:14)
[2022-07-23] MEDS: methylPREDNISolone 125 MG (Solu-MEDROL) VIAL IVP SCH ×2 (00:21→05:22)
[2022-07-23] MEDS: RT-IPRATROPIUM (ATROVENT) 0.5MG/2.5ML AMP IH SCH ×6 (03:00→23:18)
[2022-07-23] MEDS: RT-ALBUTEROL SULF 2.5 MG/3 ML PRE-MIX VIAL INH SCH ×6 (03:00→23:18)
[2022-07-23 03:59] LABS: BASOPHILS % (AUTO) 0 % (0-10); EOSINOPHILS % (AUTO) 0 % (0-10); HEMATOCRIT 44 % (40-54); HEMOGLOBIN 14.2 g/dL (13.3-17.7); LYMPHOCYTES # (AUTO) 0.6 10^3/uL (1.0-4.0); LYMPHOCYTES % (AUTO) 6 % (12-44); MEAN CORPUSCULAR HEMOGLOBIN 28 pg (25-34); MEAN CORPUSCULAR HGB CONC 32 g/dL (32-36); MEAN CORPUSCULAR VOLUME 86 fL (80-99); MEAN PLATELET VOLUME 10.5 fL (9.0-12.2); MONOCYTES # (AUTO) 0.4 10^3/uL (0.0-1.0); MONOCYTES % (AUTO) 3 % (0-12); NEUTROPHILS # (AUTO) 10.1 10^3/uL (1.8-7.8); NEUTROPHILS % (AUTO) 91 % (42-75); PLATELET COUNT 218 10^3/uL (130-400); WHITE BLOOD COUNT 11.1 10^3/uL (4.3-11.0)
[2022-07-23 04:17] LABS: ALBUMIN 3.5 GM/DL (3.2-4.5)
[2022-07-23 04:18] LABS: CALCIUM 9.3 MG/DL (8.5-10.1)
[2022-07-23 04:20] LABS: TOTAL PROTEIN 6.3 GM/DL (6.4-8.2)
[2022-07-23 04:21] LABS: BILIRUBIN,TOTAL 0.4 MG/DL (0.1-1.0)
[2022-07-23 04:23] LABS: CREATININE SERUM 0.83 MG/DL (0.60-1.30); PHOSPHORUS 3.1 MG/DL (2.3-4.7)
[2022-07-23] MEDS: hydrALAZINE (APESOLINE) 20 MG/ML VIAL IV PRN ×2 (04:24→23:48)
[2022-07-23 04:26] LABS: MAGNESIUM 2.3 MG/DL (1.6-2.4)
[2022-07-23] MEDS: inSUlin ASPART (NovoLOG) 1 UNIT/0.01 ML (CHARGE PER UNIT) SC SCH ×4 (04:34→20:40)
[2022-07-23 04:41] LABS: ABG BASE EXCESS 8.2 MMOL/L (-2.5-2.5); ABG OXYGEN SATURATION 99 % (94-100); ABG PCO2 46 MMHG (35-45); ABG PH 7.46 (7.37-7.43); ABG PO2 87 MMHG (79-93)
[2022-07-23 04:42] LABS: ALLENS TEST YES-POS; INSPIRED O2 10L; PATIENT TEMP 36; VENTILATOR NO
[2022-07-23] MEDS: KCL 20 MEQ TAB (K-DUR) PO SCH (05:18)
[2022-07-23] MEDS: MAGNESIUM 1 GM/100 ML IVPB 100 ML IV SCH (05:18)
[2022-07-23] MEDS: POTASSIUM CL 10MEQ/50ML IVPB 50 ML IV SCH (05:18)
[2022-07-23] MEDS: CEFEPIME INJECTION 1,000 MG in NS (IVPB) 50 ML IV SCH ×4 (05:22→23:26)
--- NOTE | 2022-07-23 06:22 | Progress Note ---
Subjective Date Seen by a Provider: Jul 23, 2022 Time Seen by a Provider: 11:00 Subjective/Events-last exam Improved status Wants to go home 6L/min O2 Has O2 at home just for nights No pain Labs reviewed Review of Systems General: Fatigue, Malaise Objective Exam Last Set of Vital Signs Vital Signs Date Time Temp Pulse Resp B/P (MAP) Pulse Ox O2 Delivery O2 Flow Rate FiO2 07/23/22 05:00 80 13 143/97 (112) 95 High Flow N/C 10.00 07/23/22 04:25 36.0 07/22/22 08:00 40 Capillary Refill : I&O Intake and Output 07/23/22 00:00 Intake Total 2760 ml Output Total 3150 ml Balance -390 ml Intake Oral 2610 ml IV Total 150 ml Output Urine Total 3150 ml General: Alert, Oriented X3, Cooperative, No Acute Distress Lungs: Clear to Auscultation, Normal Air Movement Heart: Regular Rate, Normal S1, Normal S2, No Murmurs Psych/Mental Status: Mental Status NL, Mood NL Results Lab Laboratory Tests 07/22/22 10:32: Glucometer 225H 07/22/22 15:49: Glucometer 265H 07/22/22 21:30: Glucometer 249H 07/23/22 03:33: White Blood Count 11.1H, Red Blood Count 5.15, Hemoglobin 14.2, Hematocrit 44, Mean Corpuscular Volume 86, Mean Corpuscular Hemoglobin 28, Mean Corpuscular Hemoglobin Concent 32, Red Cell Distribution Width 14.5, Platelet Count 218, Mean Platelet Volume 10.5, Immature Granulocyte % (Auto) 1, Neutrophils (%) (Auto) 91H, Lymphocytes (%) (Auto) 6L, Monocytes (%) (Auto) 3, Eosinophils (%) (Auto) 0, Basophils (%) (Auto) 0, Neutrophils # (Auto) 10.1H, Lymphocytes # ( Auto) 0.6L, Monocytes # (Auto) 0.4, Eosinophils # (Auto) 0.0, Basophils # (Auto) 0.0, Immature Granulocyte # (Auto) 0.1, Sodium Level 140, Potassium Level 4.0, Chloride Level 101, Carbon Dioxide Level 29, Anion Gap 10, Blood Urea Nitrogen 18, Creatinine 0.83, Estimat Glomerular Filtration Rate 97, BUN/Creatinine Ratio 22, Glucose Level 223H, Calcium Level 9.3, Corrected Calcium 9.7, Phosphorus Level 3.1, Magnesium Level 2.3, Total Bilirubin 0.4, Aspartate Amino Transf (AST/SGOT) 9, Alanine Aminotransferase (ALT/SGPT) 16, Alkaline Phosphatase 87, Total Protein 6.3L, Albumin 3.5 07/23/22 04:35: Blood Gas Puncture Site LEFT RAD, Blood Gas Patient Temperature 36, Arterial Blood pH 7.46H, Arterial Blood Partial Pressure CO2 46H, Arterial Blood Partial Pressure O2 87, Arterial Blood HCO3 33H, Arterial Blood Total CO2 34.0H, Arterial Blood Oxygen Saturation 99, Arterial Blood Base Excess 8.2H, Hamilton Test YES-POS, Blood Gas Ventilator Setting NO, Blood Gas Inspired Oxygen 10L Microbiology 07/20/22 MRSA Screen - Final, Complete MRSA not isolated Assessment/Plan Assessment/Plan Assess & Plan/Chief Complaint Assessment: Acute hypoxic and hypercapneic respiratory failure New onset AF Volume overload Smoker AECOPD Bacterial bronchitis HTN HLP DM Plan: ICU BiPAP Nebs O2 ICS Singulair Eliquis Decrease steroids Move to 4th LEONELA GONCALVES DO Jul 23, 2022 06:22
[2022-07-23] MEDS: RT--FLUTICASONE/SALMETEROL 113-14 (AIRDUO RespiCLICK) IH SCH ×3 (07:30→19:19)
--- NOTE | 2022-07-23 07:41 | Diagnostic Imaging Report ---
INDICATION: Respiratory failure. EXAMINATION: Portable chest at 4:56 AM. FINDINGS: The heart size and pulmonary vascularity are normal. The lungs are clear. There are no effusions or pneumothoraces. IMPRESSION: No acute abnormalities in the chest. Dictated by: Dictated on workstation # [id number]
[2022-07-23] MEDS: APIXABAN 5 MG (ELIQUIS) TABLET PO SCH ×2 (08:14→19:51)
[2022-07-23] MEDS: NICOTINE 21 MG (NICODERM) PATCH TD SCH (08:14)
[2022-07-23] MEDS: amLODIPine 10 MG (NORVASC) TAB PO SCH (08:14)
[2022-07-23] MEDS: lisINopril 20 MG (PRINIVIL) TABLET PO SCH (08:14)
[2022-07-23] MEDS: SENNOSIDES 8.6 MG (SENOKOT) TAB PO SCH ×2 (08:19→19:51)
[2022-07-23] MEDS: DOCUSATE SODIUM 100 MG (COLACE) CAP PO SCH ×2 (08:19→19:52)
--- NOTE | 2022-07-23 08:52 | Progress Note - Cardiology ---
Cardiology SOAP Progress Note Objective: I&O/Vital Signs Constitutional: AAO x 3, well-developed, well-nourished Respiratory: accessory muscle use, chest expansion is symmetric, chest is bilaterally symmetric, other (markedly diminished air entry, prolonged exp, exp wheezes) Cardiovascular: regular rate-rhythm; No JVD; S1 and S2 Gastrointestional: No tender; soft, audible bowel sounds Extremities: no lower extremity edema bilateral Neurologic/Psychiatric: other (moves all limbs equally) Skin: No rash on exposed areas, No ulcerations on exposed areas Results/Procedures: Labs Microbiology 07/20/22 MRSA Screen - Final, Complete MRSA not isolated A/P: Assessment: PAF - newly diagnosed, as witnessed by Dr. Peters at [facility] [place] on 07-20-22 - currently maintaing SR - Continue OAC with Eliquis - Echo on 07/21/22: LVEF 60-65%, mild enlargement of both atria, PASP 40-45 mmHg Acute respiratory failure - likely d/t acute on chronic exacerbation of COPD HTN - not well controlled HLD Tobaccoism - cessation advised KIA - CPAP tx Plan: - continue OAC with Eliquis for stroke prophylaxis - management of ARF is with the medical services - BP not well controlled (unable to titrate BB dose d/t bradycardia documented overnight) - titrate antihypertensive regimen - Monitor lab closely KELLEN KAUR Jul 23, 2022 08:52
[2022-07-23] MEDS ORDERED: lisINopril 10 MG (PRINIVIL) TABLET PO ONE (09:00)
--- NOTE | 2022-07-23 09:59 | Progress Note - Cardiology ---
Cardiology SOAP Progress Note Subjective: He notes improvement of breathing Gen malaise and weakness that is slowly improving No cp or palp or syncope No n/v/d Objective: I&O/Vital Signs 07/22/22 07/22/22 07/22/22 07/22/22 22:00 23:00 23:03 23:49 Temp 36.6 Pulse 58 58 Resp 11 15 B/P (MAP) 161/82 (108) 159/87 (111) Pulse Ox 90 94 94 O2 Delivery High Flow N/C High Flow N/C High Flow N/C O2 Flow Rate 10.00 10.00 10.00 07/22/22 07/23/22 07/23/22 07/23/22 23:59 00:00 01:00 01:00 Pulse 71 55 56 Resp 12 34 B/P (MAP) 156/92 (113) 167/108 (127) Pulse Ox 91 92 90 O2 Delivery High Flow N/C High Flow N/C High Flow N/C O2 Flow Rate 10.00 10.00 10.00 07/23/22 07/23/22 07/23/22 07/23/22 02:00 03:00 03:00 04:00 Pulse 57 48 61 Resp 21 B/P (MAP) 162/91 (114) 157/103 (121) 170/96 (120) Pulse Ox 90 93 92 90 O2 Delivery High Flow N/C High Flow N/C High Flow N/C High Flow N/C O2 Flow Rate 10.00 10.00 10.00 10.00 07/23/22 07/23/22 07/23/22 07/23/22 04:16 04:25 05:00 06:00 Temp 36.0 Pulse 80 93 Resp 13 20 B/P (MAP) 143/97 (112) 152/91 (111) Pulse Ox 90 95 93 O2 Delivery High Flow N/C High Flow N/C High Flow N/C O2 Flow Rate 10.00 10.00 10.00 07/23/22 07/23/22 07/23/22 07/23/22 07:00 07:00 07:31 07:47 Temp 36.0 Pulse 57 71 B/P (MAP) 152/97 (115) Pulse Ox 91 95 O2 Delivery High Flow N/C High Flow N/C O2 Flow Rate 10.00 10.00 07/23/22 07/23/22 07/23/22 07/23/22 08:00 08:21 08:23 09:00 Pulse 73 76 Resp 11 B/P (MAP) 157/94 (115) 146/84 (104) Pulse Ox 95 92 92 96 O2 Delivery High Flow N/C High Flow N/C High Flow N/C High Flow N/C O2 Flow Rate 10.00 8.00 8.00 8.00 07/23/22 00:00 Intake Total 1440 ml Output Total 2175 ml Balance -735 ml Constitutional: AAO x 3, well-developed, well-nourished Respiratory: accessory muscle use, chest expansion is symmetric, chest is bilaterally symmetric, other (markedly diminished air entry, prolonged exp, exp wheezes) Cardiovascular: regular rate-rhythm; No JVD; S1 and S2 Gastrointestional: No tender; soft, audible bowel sounds Extremities: no lower extremity edema bilateral Neurologic/Psychiatric: other (moves all limbs equally) Skin: No rash on exposed areas, No ulcerations on exposed areas Results/Procedures: Labs Laboratory Tests 07/22/22 10:32: Glucometer 225H 07/22/22 15:49: Glucometer 265H 07/22/22 21:30: Glucometer 249H 07/23/22 03:33: White Blood Count 11.1H, Red Blood Count 5.15, Hemoglobin 14.2, Hematocrit 44, Mean Corpuscular Volume 86, Mean Corpuscular Hemoglobin 28, Mean Corpuscular Hemoglobin Concent 32, Red Cell Distribution Width 14.5, Platelet Count 218, Mean Platelet Volume 10.5, Immature Granulocyte % (Auto) 1, Neutrophils (%) (Auto) 91H, Lymphocytes (%) (Auto) 6L, Monocytes (%) (Auto) 3, Eosinophils (%) (Auto) 0, Basophils (%) (Auto) 0, Neutrophils # (Auto) 10.1H, Lymphocytes # (Auto) 0.6L, Monocytes # (Auto) 0.4, Eosinophils # (Auto) 0.0, Basophils # (Auto) 0.0, Immature Granulocyte # (Auto) 0.1, Sodium Level 140, Potassium Level 4.0, Chloride Level 101, Carbon Dioxide Level 29, Anion Gap 10, Blood Urea Nitrogen 18, Creatinine 0.83, Estimat Glomerular Filtration Rate 97, BUN/Creatinine Ratio 22, Glucose Level 223H, Calcium Level 9.3, Corrected Calcium 9.7, Phosphorus Level 3.1, Magnesium Level 2.3, Total Bilirubin 0.4, Aspartate Amino Transf (AST/SGOT) 9, Alanine Aminotransferase (ALT/SGPT) 16, Alkaline Phosphatase 87, Total Protein 6.3L, Albumin 3.5 07/23/22 04:35: Blood Gas Puncture Site LEFT RAD, Blood Gas Patient Temperature 36, Arterial Blood pH 7.46H, Arterial Blood Partial Pressure CO2 46H, Arterial Blood Partial Pressure O2 87, Arterial Blood HCO3 33H, Arterial Blood Total CO2 34.0H, Arterial Blood Oxygen Saturation 99, Arterial Blood Base Excess 8.2H, Hamilton Test YES-POS, Blood Gas Ventilator Setting NO, Blood Gas Inspired Oxygen 10L Microbiology 07/20/22 MRSA Screen - Final, Complete MRSA not isolated Laboratory Tests 07/23/22 03:33 A/P: Assessment: PAF - newly diagnosed, as witnessed by Dr. Peters at [facility] [place] on 07-20-22 - currently maintaing SR - Continue OAC with Eliquis - Echo on 07/21/22: LVEF 60-65%, mild enlargement of both atria, PASP 40-45 mmHg Acute respiratory failure - likely d/t acute on chronic exacerbation of COPD HTN - not well controlled HLD Tobaccoism - cessation advised KIA - CPAP tx Plan: - continue OAC with Eliquis for stroke prophylaxis - management of ac on ch resp failure is with the medical services - BP not well controlled (unable to titrate BB dose d/t bradycardia documented overnight) - titrate antihypertensive regimen - Monitor labs JUSTINE MORALES MD FACP FAC CCDS Jul 23, 2022 09:59
--- NOTE | 2022-07-23 10:24 | Tele-ICU Progress Note ---
Subjective Date Seen by a Provider: Jul 23, 2022 Time Seen by a Provider: 10:24 Subjective/Events-last exam (Tele-ICU Physician , Progress Note ) Service provided via interactive audio and video telecommunications E-CARE system to a patient admitted to ICU bed in [facility]. Patient is seen today due to persistent need of ICU care Available chart/ vitals / labs / Images reviewed Video assessment done using teleICU camera, rest of exam as per RN Discussed with RN Events overnight : Afebrile hemodynamically stable Respiratory - 8L I/O = even Drips: Pressors- no Consultants: Hospital course: (07/20) 66M Admitted for COPD/bronchitis, new onset Afib, CHF, HTN 07/21- BIPAP 15/5 45% , [id number] 07/22 - 8l NC 07/23 - 10 L night , 8 day A/P Acute hypoxic and acute on chronic hypercapneic respiratory failure with VO/AECOP and infection - will cont o2 NC , to wean - IS , OOB , might need diuresis New onset AF- converted to sinus 07/21 - as per cards - AC with eliquis -ECHO 07/22 - EF 60% AECOPD - cont br-dilators - on steroids IV - Sm 60 q 6 monitor- NO WHEEZIN GREPORTED _ TO WEAN DOWN DOSE ? - pulm HTN RVSP 40 mmHg 07/22/22 - probably due to chronic hypoxia LRTI - on cefepime - to finish 5 d HTN - in part related to WOB , anxiety - as per cardiology Anxiety - prn xanax , did not need precedex DM -ISS KIA - suspected - cont NIPPV at night - pulm HTN RVSP 40 mmHg 07/22/22 - probably due to chronic hypoxia Chronic hypoxic resp failure? - reportedly on home o2 - ? compliant Lines : periph , (Central Line Necessity Reviewed) Trinh: void OG: Nutrition: Analgesia: Anxiety/ delirium VTE Prophylaxis: eliquis Stress Ulcer Prophylaxis: na Plans in collaboration with bedside consultants and IM MDs. Discussed with RN to reach out if any questions or concerns A total of _31 minutes of critical care time was devoted to this patient today, required to treat and/or prevent further deterioration of critical care condition ( as above ) . I am remotely monitoring this patient from another state. I am unable to do the bedside exam, and history/physical and pertinent information is taken from other notes in the computer and bedside staff. Sepsis Event Evaluation Height, Weight, BMI Height: '" Weight: lbs. oz. kg; 30.43 BMI Method: Exam Exam Patient acknowledged, consented, and participated in this virtual visit which was conducted using real time audio/video Vital Signs Date Time Temp Pulse Resp B/P (MAP) Pulse Ox O2 Delivery O2 Flow Rate FiO2 07/23/22 10:07 95 High Flow N/C 6.00 07/23/22 09:00 76 11 146/84 (104) 96 High Flow N/C 8.00 07/23/22 08:23 92 High Flow N/C 8.00 07/23/22 08:21 92 High Flow N/C 8.00 07/23/22 08:00 73 157/94 (115) 95 High Flow N/C 10.00 07/23/22 07:47 36.0 07/23/22 07:31 95 High Flow N/C 10.00 07/23/22 07:00 71 07/23/22 07:00 57 152/97 (115) 91 High Flow N/C 10.00 07/23/22 06:00 93 20 152/91 (111) 93 High Flow N/C 10.00 07/23/22 05:00 80 13 143/97 (112) 95 High Flow N/C 10.00 07/23/22 04:25 36.0 07/23/22 04:16 90 High Flow N/C 10.00 07/23/22 04:00 61 21 170/96 (120) 90 High Flow N/C 10.00 07/23/22 03:00 92 High Flow N/C 10.00 07/23/22 03:00 48 157/103 (121) 93 High Flow N/C 10.00 07/23/22 02:00 57 162/91 (114) 90 High Flow N/C 10.00 07/23/22 01:00 56 34 167/108 (127) 90 High Flow N/C 10.00 07/23/22 01:00 55 07/23/22 00:00 71 12 156/92 (113) 92 High Flow N/C 10.00 07/22/22 23:59 91 High Flow N/C 10.00 07/22/22 23:49 36.6 07/22/22 23:03 94 High Flow N/C 10.00 07/22/22 23:00 58 15 159/87 (111) 94 High Flow N/C 10.00 07/22/22 22:00 58 11 161/82 (108) 90 High Flow N/C 10.00 07/22/22 21:00 66 19 166/89 (114) 93 High Flow N/C 10.00 07/22/22 20:00 92 High Flow N/C 10.00 07/22/22 20:00 36.4 07/22/22 20:00 75 19 156/91 (112) 93 High Flow N/C 10.00 07/22/22 19:32 92 High Flow N/C 10.00 07/22/22 19:00 High Flow N/C 10.00 07/22/22 19:00 85 07/22/22 19:00 77 19 163/104 (123) 92 High Flow N/C 10.00 07/22/22 18:00 70 16 90 High Flow N/C 8.00 07/22/22 17:00 66 18 159/91 (113) 92 High Flow N/C 8.00 07/22/22 16:00 71 59 157/95 (115) 93 High Flow N/C 8.00 07/22/22 15:27 93 High Flow N/C 10.00 07/22/22 15:00 73 33 155/92 (113) 94 High Flow N/C 8.00 07/22/22 14:15 93 High Flow N/C 10.00 07/22/22 14:00 74 23 155/88 (110) 91 High Flow N/C 8.00 07/22/22 13:00 81 07/22/22 13:00 80 23 162/100 (120) 91 High Flow N/C 8.00 07/22/22 12:00 62 18 151/95 (113) 93 High Flow N/C 8.00 07/22/22 12:00 36.0 07/22/22 11:26 93 High Flow N/C 10.00 07/22/22 11:00 77 12 153/102 (119) 91 High Flow N/C 8.00 I & O 07/23/22 07:00 Intake Total 3260 ml Output Total 3775 ml Balance -515 ml Height & Weight Height: '" Weight: lbs. oz. kg; 30.43 BMI Method: General Appearance: WD/WN, Anxious, Chronically ill, Moderate Distress HEENT: PERRL/EOMI, Normal ENT Inspection, Pharynx Normal Neck: Full Range of Motion, Normal Inspection, Non Tender, Supple, Carotid Bruit Respiratory: Chest Non Tender, No Respiratory Distress, Accessory Muscle Use, Crackles, Decreased Breath Sounds, Rales, Wheezing Cardiovascular: No Edema, No Gallop, No JVD, No Murmur, Normal Peripheral Pulses, Irregularly Irregular Extremity: Normal Capillary Refill, Normal Inspection, Normal Range of Motion, Non Tender, No Calf Tenderness, No Pedal Edema Neurologic/Psychiatric: Alert, Oriented x3, No Motor/Sensory Deficits, Normal 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
[2022-07-23] MEDS ORDERED: inSUlin ASPART (NovoLOG) 1 UNIT/0.01 ML (CHARGE PER UNIT) SC NR (11:45)
--- NOTE | 2022-07-23 13:53 | Physical Therapy Evaluation ---
PT Evaluation-General Medical Diagnosis Admission Date Jul 20, 2022 at 20:59 Medical Diagnosis: respiratory failure Onset Date: Jul 20, 2022 Therapy Diagnosis Therapy Diagnosis: debility Precautions Precautions/Isolations: Standard Precautions Referral Physician: Lorraine Reason for Referral: Evaluation/Treatment Medical History Pertinent Medical History: Atrial Fib, COPD, DM, HTN, Smoking Current History transfer from OS due to hypoxia Reviewed History: Yes Social History Home: Single Level Current Living Status: Spouse Prior Prior Level of Function SCALE: Activities may be completed with or without assistive devices. 4-Wftygtwjgp-nzqafaa completes the activity by him/herself with no assistance from a helper. 5-Set-up or Clean-up Assistance-helper sets up or cleans up; patient completes activity. [place] assists only prior to or following the activity. 4-Supervision or Touching Assistance-helper provides verbal cues and/or touching/steadying and/or contact guard assistance as patient completes act ivity. Assistance may be provided throughout the activity or intermittently. 3-Partial/Moderate Assistance-helper does LESS THAN HALF the effort. [place] lifts, holds or supports trunk or limbs, but provides less than half the effort. 2-Substantial/Maximal Assistance-helper does MORE THAN HALF the effort. [place] lifts or holds trunk or limbs and provides more than half the effort. 4-Zlslrshds-rpvkst does ALL the effort. Patient does none of the effort to complete the activity. Or, the assistance of 2 or more helpers is required for the patient to complete the activity. If activity was not attempted, code reason: 7-Patient Refused. 9-Not Applicable-not attempted and the patient did not perform the activity before the current illness, exacerbation or injury. 10-Not Attempted due to Environmental Limitations-(lack of equipment, weather restraints, etc.). 88-Not Attempted due to Medical Conditions or Safety Concerns. Bed Mobility: 6 Transfers (B,C,W/C): 6 Gait: 6 Stairs: 6 Indoor Mobility (Ambulation): Independent Stairs: Independent Prior Devices Use: None PT Evaluation-Current Subjective Patient agrees to PT. Objective Patient Orientation: Normal For Age Attachments: Oxygen (6L HF NC) ROM/Strength ROM Lower Extremities bilateral LE WFL Strength Lower Extremities 5/5 grossly bilateral LE all planes Integumentary/Posture Bowel Incontinence: No Bladder Incontinence: No Posture WFL Neuromuscular (Tone, Coordination, Reflexes) grossly intact Sensory Vision: Functional Hearing: Functional Transfers Lying to Sitting/Side of Bed(Q: 6 Sit to Stand (QC): 6 Chair/Ank-ct-Hnqea Xfer(QC): 6 Gait Mode of Locomotion: Walk Anticipated Mode of Locomotion: Walk Walk 10 feet (QC): 6 Walk 50 ft with 2 Turns(QC): 6 Walk 150 ft (QC): 6 Distance: 500' Gait Assistive Device: None Comments/Gait Description safe and functional with no deviation Balance Sitting Static: Normal Sitting Dynamic: Normal Standing Static: Normal Standing Dynamic: Normal Picking up an Object (QC): 6 Assessment/Needs Patient is currently independent with all gross motor skills safely and does not require skilled PT intervention at this time. Rehab Potential: Fair PT Plan Treatment/Plan Treatment Plan: Discontinue PT Treatment Duration: Jul 23, 2022 Frequency: 1 time per week Estimated Hrs Per Day: .25 hour per day Patient and/or Family Agrees t: Yes Time Time In: 1325 Time Out: 1336 DATE: Jul 23, 2022 Total Billed Treatment Time: 11 Total Billed Treatment 1 visit [facility] 11 min JOANA MELCHOR PT Jul 23, 2022 13:53
--- NOTE | 2022-07-23 14:44 | Occupational Therapy Eval ---
OT Evaluation-General/PLF Medical Diagnosis Admission Date Jul 20, 2022 at 20:59 Medical Diagnosis: respiratory failure Onset Date: Jul 20, 2022 Therapy Diagnosis Therapy Diagnosis: SOA w/ exertion, debility Precautions Precautions/Isolations: Standard Precautions Weight Bear Status Weight Bearing Restriction: Weight Bearing/Tolerated Referral Physician: Lorraine Referral Reason: Evaluation/Treatment Medical History Pertinent Medical History: Atrial Fib, COPD, DM, HTN, Smoking Current History transfer from OSH due to hypoxia, patient uses 4 liter NC 02 at home currently 6 liters NC Reviewed History: Yes Social History Home: Single Level Current Living Status: Spouse Steps Into Home: 2 ADL-Prior Level of Function SCALE: Activities may be completed with or without assistive devices. 7-Tfsmoxqhkd-wfcffez completes the activity by him/herself with no assistance from a helper. 5-Set-up or Clean-up Assistance-helper sets up or cleans up; patient completes activity. [place] assists only prior to or following the activity. 4-Supervision or Touching Assistance-helper provides verbal cues and/or touching/steadying and/or contact guard assistance as patient completes activity. Assistance may be provided throughout the activity or intermittently. 3-Partial/Moderate Assistance-helper does LESS THAN HALF the effort. [place] lifts, holds or supports trunk or limbs, but provides less than half the effort. 2-Substantial/Maximal Assistance-helper does MORE THAN HALF the effort. [place] lifts or holds trunk or limbs and provides more than half the effort. 1-Vnkyrungp-odyfls does ALL the effort. Patient does none of the effort to complete the activity. Or, the assistance of 2 or more helpers is required for the patient to complete the activity. If activity was not attempted, code reason: 7-Patient Refused. 9-Not Applicable-not attempted and the patient did not perform the activity before the current illness, exacerbation or injury. 10-Not Attempted due to Environmental Limitations-(lack of equipment, weather restraints, etc.). 88-Not Attempted due to Medical Conditions or Safety Concerns. Self Care: Independent Functional Cognition: Independent Occupation: retired Drive Self: Yes OT Current Status Subjective Up in recliner LB garments w/ hospital gown talking on phone Mental Status/Objective Patient Orientation: Person, Place, Time, Situation Attachments: Oxygen Current Upper Extremity ROM BUE ROM WFLS Upper Extremity Coordination BUE FMC/GMC WFLS Upper Extremity Strength +4/5 BUE grossly ADL-Treatment Upper Body Dressing (QC): 6 (Un/ties hospital gown, demonstrated overhead UB garmetn management) Lower Body Dressing (QC): 6 (elatic waist sweat pants) On/Off Footwear (QC): 6 (non skid socks) Toileting Hygiene (QC): 6 (performed transfer off/on toilet Mod I) NO concerns w/ ADLS, SOA noted, patient regulates Rest breaks independently Education OT Patient Education: Disease process, Energy conservation, Rehab process, Safety issues Teaching Recipient: Patient Teaching Methods: Demonstration, Discussion Response to Teaching: Verbalize Understanding, Return Demonstration 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 2=Patient will verbalize/demonstrate understanding of assistive devices/modifications for ADL. 3=Patient will improve strength/tolerance for activity to enable patient to perform ADL's. OT Education/Plan Problem List/Assessment Assessment: No Skilled OT Needs ID'd Discharge Recommendations Plan/Recommendations: Discontinue OT Therapy Discharge Recommendati: Home & Family Treatment Plan/Plan of Care Treatment,Training & Education: Yes Patient would benefit from OT for education, treatment and training to promote independence in ADL's, mobility, safety and/or upper extremity function for ADL's. Plan of Care: OTHER (Energy conservation educaiotn , completed w/ evaluation) Treatment Duration: Jul 23, 2022 Frequency: 1 time per week Estimated Hrs Per Day: .25 hour per day Agreement: Yes Rehab Potential: Good Patient agreed to therapy evaluation, PLOF indicates no skilled OT intervention at this time. Time Start Time: 14:24 Stop Time: 14:35 DATE: Jul 23, 2022 Total Time Billed (hr/min): 11 Billed Treatment Time 1 EVL 11 min HERMINIA ACEVES OT Jul 23, 2022 14:44
[2022-07-23 19:10] VITALS: BP 176/88
[2022-07-23] MEDS: MONTELUKAST 10 MG (SINGULAIR) TAB PO SCH (19:51)
[2022-07-23 23:30] VITALS: BP 162/78
[2022-07-24 00:57] VITALS: BP 162/78
[2022-07-24 03:06] VITALS: BP 176/95
[2022-07-24] MEDS: hydrALAZINE (APESOLINE) 20 MG/ML VIAL IV PRN (04:08)
[2022-07-24] MEDS: inSUlin ASPART (NovoLOG) 1 UNIT/0.01 ML (CHARGE PER UNIT) SC SCH ×2 (05:19→11:38)
[2022-07-24 05:29] LABS: BASOPHILS % (AUTO) 0 % (0-10); EOSINOPHILS % (AUTO) 0 % (0-10); HEMATOCRIT 47 % (40-54); HEMOGLOBIN 15.1 g/dL (13.3-17.7); LYMPHOCYTES # (AUTO) 1.7 10^3/uL (1.0-4.0); LYMPHOCYTES % (AUTO) 17 % (12-44); MEAN CORPUSCULAR HEMOGLOBIN 27 pg (25-34); MEAN CORPUSCULAR HGB CONC 32 g/dL (32-36); MEAN CORPUSCULAR VOLUME 85 fL (80-99); MEAN PLATELET VOLUME 10.1 fL (9.0-12.2); MONOCYTES % (AUTO) 10 % (0-12); NEUTROPHILS # (AUTO) 7.4 10^3/uL (1.8-7.8); NEUTROPHILS % (AUTO) 72 % (42-75); PLATELET COUNT 192 10^3/uL (130-400); WHITE BLOOD COUNT 10.3 10^3/uL (4.3-11.0)
[2022-07-24 05:40] LABS: ALBUMIN 3.5 GM/DL (3.2-4.5); POTASSIUM 3.5 MMOL/L (3.6-5.0)
[2022-07-24 05:44] LABS: BILIRUBIN,TOTAL 0.5 MG/DL (0.1-1.0)
[2022-07-24 05:46] LABS: CREATININE SERUM 0.79 MG/DL (0.60-1.30)
[2022-07-24 05:49] LABS: MAGNESIUM 2.1 MG/DL (1.6-2.4)
[2022-07-24] MEDS: CEFEPIME INJECTION 1,000 MG in NS (IVPB) 50 ML IV SCH ×2 (05:54→11:37)
[2022-07-24] MEDS ORDERED: predniSONE 20 MG TAB PO SCH (07:00)
[2022-07-24] MEDS: RT-IPRATROPIUM (ATROVENT) 0.5MG/2.5ML AMP IH SCH ×2 (07:05→10:39)
[2022-07-24] MEDS: RT--FLUTICASONE/SALMETEROL 113-14 (AIRDUO RespiCLICK) IH SCH (07:05)
[2022-07-24] MEDS: RT-ALBUTEROL SULF 2.5 MG/3 ML PRE-MIX VIAL INH SCH ×2 (07:06→10:39)
[2022-07-24 08:05] VITALS: BP 147/87
[2022-07-24] MEDS ORDERED: lisINopril 20 MG (PRINIVIL) TABLET PO SCH (09:00)
[2022-07-24] MEDS ORDERED: lisINopril 10 MG (PRINIVIL) TABLET PO SCH (09:00)
[2022-07-24] MEDS: SENNOSIDES 8.6 MG (SENOKOT) TAB PO SCH (09:13)
[2022-07-24] MEDS: amLODIPine 10 MG (NORVASC) TAB PO SCH (09:13)
[2022-07-24] MEDS: APIXABAN 5 MG (ELIQUIS) TABLET PO SCH (09:13)
[2022-07-24] MEDS: NICOTINE 21 MG (NICODERM) PATCH TD SCH (09:13)
[2022-07-24] MEDS: DOCUSATE SODIUM 100 MG (COLACE) CAP PO SCH (09:13)
--- NOTE | 2022-07-24 10:51 | Cardiology Progress Note ---
Subjective Date Seen by Provider: Jul 24, 2022 Time Seen by Provider: 10:48 Subjective/Events-last exam Patient was seen at bedside, sitting comfortably, feeling better and asking about going home Review of Systems General: No Chills, No Night Sweats, No Fatigue, No Malaise, No Appetite, No Other HEENT: No Head Aches, No Visual Changes, No Eye Pain, No Ear Pain, No Dysphasia, No Sinus Congestion, No Post Nasal Drip, No Sore Throat, No Other Pulmonary: No Dyspnea, No Cough, No Pleuritic Chest Pain, No Other Cardiovascular: No: Chest Pain, Palpitations, Orthopnea, Paroxysmal Noc. Dyspnea, Edema, Lt Headedness, Other Objective-Cardiology Exam Last Set of Vital Signs Vital Signs 07/24/22 07/24/22 07/24/22 00:57 08:05 10:39 Temp 36.8 Pulse 77 Resp 20 B/P (MAP) 147/87 (107) Pulse Ox 93 O2 Delivery High Flow N/C O2 Flow Rate 4.00 FiO2 36 I&O Intake and Output 07/24/22 00:00 Intake Total 2230 ml Output Total 2130 ml Balance 100 ml Intake Oral 2030 ml IV Total 200 ml Output Urine Total 2130 ml # Voids 2 # Bowel Movements 1 General: Alert, Oriented X3, Cooperative, No Acute Distress HEENT: Atraumatic, PERRLA Neck: Supple Lungs: Clear to Auscultation, Normal Air Movement Heart: Regular Rate, Normal S1, Normal S2, No Murmurs Abdomen: Normal Bowel Sounds Extremities: No Clubbing, No Cyanosis, Other (mild edema LE bilaterally) Skin: No Rashes, No Breakdown Neuro: Normal Gait, Normal Speech, Strength at 5/5 X4 Ext Psych/Mental Status: Mental Status NL, Mood NL Results Lab Laboratory Tests 07/24/22 05:06 A/P-Cardiology Admission Diagnosis Atrial fibrillation Hypertension Hyperlipidemia COPD Assessment/Plan New onset atrial fibrillation, diagnosed on July 20, 2022 Back in sinus rhythm Maintained on Eliquis 2D echo was done in June 2022 with a EF 60 to 65%. PA pressure 40 to 45 mmHg Status post acute respiratory failure secondary to COPD exacerbation Maintained on prednisone, reporting significant improvement Hypertension, poorly controlled, probably secondary to steroid use at this time Continue on home medication monitor blood pressure as an outpatient Hyperlipidemia, monitor lipids Tobaccoism, educated on smoking cessation COPD/obstructive sleep apnea maintained on CPAP. Okay for discharge from cardiology standpoint EDINSON GAMING MD Jul 24, 2022 10:51
[2022-07-24 11:49] VITALS: BP 152/87
[2022-07-24] MEDS ORDERED: LISI20TA26 PO (12:03)
[2022-07-24] MEDS ORDERED: APIX5TAB PO (12:03)
[2022-07-24] MEDS ORDERED: AMLO-251 PO (12:03)
[2022-07-24] MEDS ORDERED: MONT-40 PO (12:03)
[2022-07-24] MEDS ORDERED: CEFD300C3 PO (12:03)
[2022-07-24] MEDS ORDERED: PRED10TA22 PO (12:03)
--- NOTE | 2022-07-24 12:05 | Discharge Summary ---
Diagnosis/Chief Complaint Date of Admission Jul 20, 2022 at 20:59 Date of Discharge Discharge Date: Jul 24, 2022 Discharge Diagnosis Assessment: Acute hypoxic and hypercapneic respiratory failure New onset AF Volume overload Smoker KIA on CPAP with O2 bled into it AECOPD Bacterial bronchitis HTN HLP DM Discharge Summary Discharge Physical Examination Allergies: Coded Allergies: dexmedetomidine (Verified Adverse Reaction, Severe, AGITATION, 07/23/22) Vitals & I&Os Vital Signs Date Time Temp Pulse Resp B/P (MAP) Pulse Ox O2 Delivery O2 Flow Rate FiO2 07/24/22 11:49 36.4 82 20 152/87 (108) 94 Nasal Cannula 4.00 07/24/22 00:57 36 General Appearance: Alert, Oriented X3, Cooperative Respiratory: Clear to Auscultation Cardiovascular: Regular Rate Psych/Mental Status: Mental Status NL Hospital Course Was the Problem List Reviewed?: Yes Complicated course after he was moved to higher level of care from [facility] due to acute hypoxic resp failure with new onset AF and volume overload. Cardiology consulted along with eicu and managed his CO2 narcosis with biPAP for 3 days. Overall he had no complications and tolerated OAC addition for CVA PPx due to PAF. Patient required O2 3L/min continuous at time of DC along with prior O2 on exertion and night time to his CPAP. Overall did well and was ready for DC. Smoking cessation counseled. Labs (last 24 hrs) Laboratory Tests 07/20/22 22:30: Glucometer 179H 07/20/22 23:40: Blood Gas Puncture Site RRAD, Blood Gas Patient Temperature 36.5, Arterial Blood pH 7.32*L, Arterial Blood Partial Pressure CO2 61H, Arterial Blood Partial Pressure O2 66L, Arterial Blood HCO3 31H, Arterial Blood Total CO2 32.8H, Arterial Blood Oxygen Saturation 94, Arterial Blood Base Excess 5.0H, Hamilton Test YES-POS, Blood Gas Ventilator Setting NO, Blood Gas Inspired Oxygen 6L 07/21/22 05:25: Blood Gas Puncture Site R RAD, Blood Gas Patient Temperature 36.4, Arterial Blood pH 7.34*L, Arterial Blood Partial Pressure CO2 58H, Arterial Blood Partial Pressure O2 64L, Arterial Blood HCO3 30H, Arterial Blood Total CO2 32.2H, Arterial Blood Oxygen Saturation 94, Arterial Blood Base Excess 4.8H, Hamilton Test YES-POS, Blood Gas Ventilator Setting NO, Blood Gas Inspired Oxygen 6L 07/21/22 05:37: White Blood Count 8.5, Red Blood Count 5.14, Hemoglobin 14.3, Hematocrit 45, Mean Corpuscular Volume 87, Mean Corpuscular Hemoglobin 28, Mean Corpuscular Hemoglobin Concent 32, Red Cell Distribution Width 14.8H, Platelet Count 190, Mean Platelet Volume 10.8, Immature Granulocyte % (Auto) 1, Neutrophils (%) (A uto) 92H, Lymphocytes (%) (Auto) 6L, Monocytes (%) (Auto) 1, Eosinophils (%) (Auto) 0, Basophils (%) (Auto) 0, Neutrophils # (Auto) 7.8, Lymphocytes # (Auto) 0.5L, Monocytes # (Auto) 0.1, Eosinophils # (Auto) 0.0, Basophils # (Auto) 0.0, Immature Granulocyte # (Auto) 0.1, Neutrophils % (Manual) 93, Lymphocytes % (Manual) 6, Monocytes % (Manual) 1, Blood Morphology Comment NORMAL, Sodium Level 141, Potassium Level 3.8, Chloride Level 102, Carbon Dioxide Level 25, Anion Gap 14, Blood Urea Nitrogen 12, Creatinine 0.75, Estimat Glomerular Filtration Rate 100, BUN/Creatinine Ratio 16, Glucose Level 241H, Calcium Level 9.5, Corrected Calcium 9.6, Phosphorus Level 3.7, Magnesium Level 1.9, Total Bilirubin 0.9, Aspartate Amino Transf (AST/SGOT) 13, Alanine Aminotransferase (ALT/SGPT) 13, Alkaline Phosphatase 103, Total Protein 7.2, Albumin 3.9 07/21/22 10:34: Glucometer 220H 07/21/22 15:50: Glucometer 220H 07/21/22 20:05: Glucometer 324H 07/22/22 05:07: White Blood Count 10.2, Red Blood Count 4.89, Hemoglobin 13.4, Hematocrit 43, Mean Corpuscular Volume 87, Mean Corpuscular Hemoglobin 27, Mean Corpuscular Hemoglobin Concent 32, Red Cell Distribution Width 14.7H, Platelet Count 189, Mean Platelet Volume 10.8, Immature Granulocyte % (Auto) 1, Neutrophils (%) (Auto) 88H, Lymphocytes (%) (Auto) 7L, Monocytes (%) (Auto) 4, Eosinophils (%) (Auto) 0, Basophils (%) (Auto) 0, Neutrophils # (Auto) 8.9H, Lymphocytes # (Auto) 0.7L, Monocytes # (Auto) 0.4, Eosinophils # (Auto) 0.0, Basophils # (Auto) 0.0, Immature Granulocyte # (Auto) 0.1, Sodium Level 140, Potassium Level 4.1, Chloride Level 103, Carbon Dioxide Level 28, Anion Gap 9, Blood Urea Nitrogen 15, Creatinine 0.75, Estimat Glomerular Filtration Rate 100, B UN/Creatinine Ratio 20, Glucose Level 234H, Calcium Level 9.2, Corrected Calcium 9.8, Phosphorus Level 3.4, Magnesium Level 2.2, Total Bilirubin 0.3, Aspartate Amino Transf (AST/SGOT) 10, Alanine Aminotransferase (ALT/SGPT) 14, Alkaline Phosphatase 92, Total Protein 6.1L, Albumin 3.3 07/22/22 05:10: Glucometer 225H 07/22/22 06:17: Blood Gas Puncture Site R WRIST, Blood Gas Patient Temperature 97.4, Arterial Blood pH 7.36L, Arterial Blood Partial Pressure CO2 59H, Arterial Blood Partial Pressure O2 65L, Arterial Blood HCO3 33H, Arterial Blood Total CO2 34.6H, Arterial Blood Oxygen Saturation 95, Arterial Blood Base Excess 7.2H, Hamilton Test NA, Blood Gas Ventilator Setting NO, Blood Gas Inspired Oxygen 45% 07/22/22 10:32: Glucometer 225H 07/22/22 15:49: Glucometer 265H 07/22/22 21:30: Glucometer 249H 07/23/22 03:33: White Blood Count 11.1H, Red Blood Count 5.15, Hemoglobin 14.2, Hematocrit 44, Mean Corpuscular Volume 86, Mean Corpuscular Hemoglobin 28, Mean Corpuscular Hemoglobin Concent 32, Red Cell Distribution Width 14.5, Platelet Count 218, Mean Platelet Volume 10.5, Immature Granulocyte % (Auto) 1, Neutrophils (%) (Auto) 91H, Lymphocytes (%) (Auto) 6L, Monocytes (%) (Auto) 3, Eosinophils (%) (Auto) 0, Basophils (%) (Auto) 0, Neutrophils # (Auto) 10.1H, Lymphocytes # (Auto) 0.6L, Monocytes # (Auto) 0.4, Eosinophils # (Auto) 0.0, Basophils # (Auto) 0.0, Immature Granulocyte # (Auto) 0.1, Sodium Level 140, Potassium Level 4.0, Chloride Level 101, Carbon Dioxide Level 29, Anion Gap 10, Blood Urea Nitrogen 18, Creatinine 0.83, Estimat Glomerular Filtration Rate 97, BUN/Creatinine Ratio 22, Glucose Level 223H, Calcium Level 9.3, Corrected Calcium 9.7, Phosphorus Level 3.1, Magnesium Level 2.3, Total Bilirubin 0.4, Aspartate Amino Transf (AST/SGOT) 9, Alanine Aminotransferase (ALT/SGPT) 16, Alkaline Phosphatase 87, Total Protein 6.3L, Albumin 3.5 07/23/22 04:35: Blood Gas Puncture Site LEFT RAD, Blood Gas Patient Temperature 36, Arterial Blood pH 7.46H, Arterial Blood Partial Pressure CO2 46H, Arterial Blood Partial Pressure O2 87, Arterial Blood HCO3 33H, Arterial Blood Total CO2 34.0H, Art erial Blood Oxygen Saturation 99, Arterial Blood Base Excess 8.2H, Hamilton Test YES-POS, Blood Gas Ventilator Setting NO, Blood Gas Inspired Oxygen 10L 07/23/22 11:22: Glucometer 441*H 07/23/22 15:58: Glucometer 218H 07/23/22 20:11: Glucometer 203H 07/24/22 05:05: Glucometer 148H 07/24/22 05:06: White Blood Count 10.3, Red Blood Count 5.54H, Hemoglobin 15.1, Hematocrit 47, Mean Corpuscular Volume 85, Mean Corpuscular Hemoglobin 27, Mean Corpuscular He moglobin Concent 32, Red Cell Distribution Width 14.6H, Platelet Count 192, Mean Platelet Volume 10.1, Immature Granulocyte % (Auto) 1, Neutrophils (%) (Auto) 72, Lymphocytes (%) (Auto) 17, Monocytes (%) (Auto) 10, Eosinophils (%) (Auto) 0, Basophils (%) (Auto) 0, Neutrophils # (Auto) 7.4, Lymphocytes # (Auto) 1.7, Monocytes # (Auto) 1.0, Eosinophils # (Auto) 0.0, Basophils # (Auto) 0.0, Immature Granulocyte # (Auto) 0.1, Sodium Level 141, Potassium Level 3.5L, Chlo ride Level 100, Carbon Dioxide Level 30, Anion Gap 11, Blood Urea Nitrogen 18, Creatinine 0.79, Estimat Glomerular Filtration Rate 98, BUN/Creatinine Ratio 23, Glucose Level 153H, Calcium Level 9.0, Corrected Calcium 9.4, Magnesium Level 2.1, Total Bilirubin 0.5, Aspartate Amino Transf (AST/SGOT) 17, Alanine Aminotransferase (ALT/SGPT) 21, Alkaline Phosphatase 83, Total Protein 6.0L, Albumin 3.5 07/24/22 10:11: Glucometer 236H Microbiology 07/20/22 MRSA Screen - Final, Complete MRSA not isolated Pending Labs Microbiology Date/Time Source Procedure Growth Status 07/20/22 21:55 Nasal MRSA Screen - Final MRSA not isolated Complete Laboratory Tests 07/20/22 22:30: Glucometer 179 07/20/22 23:40: Blood Gas Puncture Site RRAD, Blood Gas Patient Temperature 36.5, Arterial Blood pH 7.32, Arterial Blood Partial Pressure CO2 61, Arterial Blood Partial Pressure O2 66, Arterial Blood HCO3 31, Arterial Blood Total CO2 32.8, Arterial Blood Oxygen Saturation 94, Arterial Blood Base Excess 5.0, Hamilton Test YES-POS, Blood Gas Ventilator Setting NO, Blood Gas Inspired Oxygen 6L 07/21/22 05:25: Blood Gas Puncture Site R RAD, Blood Gas Patient Temperature 36.4, Arterial Blood pH 7.34, Arterial Blood Partial Pressure CO2 58, Arterial Blood Partial Pressure O2 64, Arterial Blood HCO3 30, Arterial Blood Total CO2 32.2, Arterial Blood Oxygen Saturation 94, Arterial Blood Base Excess 4.8, Hamilton Test YES-POS, Blood Gas Ventilator Setting NO, Blood Gas Inspired Oxygen 6L 07/21/22 05:37: White Blood Count 8.5, Red Blood Count 5.14, Hemoglobin 14.3, Hematocrit 45, Mean Corpuscular Volume 87, Mean Corpuscular Hemoglobin 28, Mean Corpuscular Hemoglobin Concent 32, Red Cell Distribution Width 14.8, Platelet Count 190, Mean Platelet Volume 10.8, Immature Granulocyte % (Auto) 1, Neutrophils (%) (Auto) 92, Lymphocytes (%) (Auto) 6, Monocytes (%) (Auto) 1, Eosinophils (%) (Auto) 0, Basophils (%) (Auto) 0, Neutrophils # (Auto) 7.8, Lymphocytes # (Auto) 0.5, Monocytes # (Auto) 0.1, Eosinophils # (Auto) 0.0, Basophils # (Auto) 0.0, Immature Granulocyte # (Auto) 0.1, Neutrophils % (Manual) 93, Lymphocytes % (Manual) 6, Monocytes % (Manual) 1, Blood Morphology Comment NORMAL, Sodium Level 141, Potassium Level 3.8, Chloride Level 102, Carbon Dioxide Level 25, Anion Gap 14, Blood Urea Nitrogen 12, Creatinine 0.75, Estimat Glomerular Joaquin tration Rate 100, BUN/Creatinine Ratio 16, Glucose Level 241, Calcium Level 9.5, Corrected Calcium 9.6, Phosphorus Level 3.7, Magnesium Level 1.9, Total Bilirubin 0.9, Aspartate Amino Transf (AST/SGOT) 13, Alanine Aminotransferase (ALT/SGPT) 13, Alkaline Phosphatase 103, Total Protein 7.2, Albumin 3.9 07/21/22 10:34: Glucometer 220 07/21/22 15:50: Glucometer 220 07/21/22 20:05: Glucometer 324 07/22/22 05:07: White Blood Count 10.2, Red Blood Count 4.89, Hemoglobin 13.4, Hematocrit 43, Mean Corpuscular Volume 87, Mean Corpuscular Hemoglobin 27, Mean Corpuscular Hemoglobin Concent 32, Red Cell Distribution Width 14.7, Platelet Count 189, Mean Platelet Volume 10.8, Immature Granulocyte % (Auto) 1, Neutrophils (%) (Auto) 88, Lymphocytes (%) (Auto) 7, Monocytes (%) (Auto) 4, Eosinophils (%) (Auto) 0, Basophils (%) (Auto) 0, Neutrophils # (Auto) 8.9, Lymphocytes # (Auto) 0.7, Monocytes # (Auto) 0.4, Eosinophils # (Auto) 0.0, Basophils # (Auto) 0.0, Immature Granulocyte # (Auto) 0.1, Sodium Level 140, Potassium Level 4.1, Chloride Level 103, Carbon Dioxide Level 28, Anion Gap 9, Blood Urea Nitrogen 15, Creatinine 0.75, Estimat Glomerular Filtration Rate 100, BUN/Creatinine Ratio 20, Glucose Level 234, Calcium Level 9.2, Corrected Calcium 9.8, Phosphorus Level 3.4, Magnesium Level 2.2, Total Bilirubin 0.3, Aspartate Amino Transf (AST/SGOT) 10, Alanine Aminotransferase (ALT/SGPT) 14, Alkaline Phosphatase 92, Total Protein 6.1, Albumin 3.3 07/22/22 05:10: Glucometer 225 07/22/22 06:17: Blood Gas Puncture Site R WRIST, Blood Gas Patient Temperature 97.4, Arterial Blood pH 7.36, Arterial Blood Partial Pressure CO2 59, Arterial Blood Partial Pressure O2 65, Arterial Blood HCO3 33, Arterial Blood Total CO2 34.6, Arterial Blood Oxygen Saturation 95, Arterial Blood Base Excess 7.2, Hamilton Test NA, Blood Gas Ventilator Setting NO, Blood Gas Inspired Oxygen 45% 07/22/22 10:32: Glucometer 225 07/22/22 15:49: Glucometer 265 07/22/22 21:30: Glucometer 249 07/23/22 03:33: White Blood Count 11.1, Red Blood Count 5.15, Hemoglobin 14.2, Hematocrit 44, Mean Corpuscular Volume 86, Mean Corpuscular Hemoglobin 28, Mean Corpuscular Hemoglobin Concent 32, Red Cell Distribution Width 14.5, Platelet Count 218, Mean Platelet Volume 10.5, Immature Granulocyte % (Auto) 1, Neutrophils (%) (Auto) 91, Lymphocytes (%) (Auto) 6, Monocytes (%) (Auto) 3, Eosinophils (%) (Auto) 0, Basophils (%) (Auto) 0, Neutrophils # (Auto) 10.1, Lymphocytes # (Auto) 0.6, Monocytes # (Auto) 0.4, Eosinophils # (Auto) 0.0, Basophils # (Auto) 0.0, Immature Granulocyte # (Auto) 0.1, Sodium Level 140, Potassium Level 4.0, Chloride Level 101, Carbon Dioxide Level 29, Anion Gap 10, Blood Urea Nitrogen 18, Creatinine 0.83, Estimat Glomerular Filtration Rate 97, BUN/Creatinine Ratio 22, Glucose Level 223, Calcium Level 9.3, Corrected Calcium 9.7, Phosphorus Level 3.1, Magnesium Level 2.3, Total Bilirubin 0.4, Aspartate Amino Transf (AST/SGOT) 9, Alanine Aminotransferase (ALT/SGPT) 16, Alkaline Phosphatase 87, Total Protein 6.3, Albumin 3.5 07/23/22 04:35: Blood Gas Puncture Site LEFT RAD, Blood Gas Patient Temperature 36, Arterial Blood pH 7.46, Arterial Blood Partial Pressure CO2 46, Arterial Blood Partial Pressure O2 87, Arterial Blood HCO3 33, Arterial Blood Total CO2 34.0, Arterial Blood Oxygen Saturation 99, Arterial Blood Base Excess 8.2, Hamilton Test YES-POS, Blood Gas Ventilator Setting NO, Blood Gas Inspired Oxygen 10L 07/23/22 11:22: Glucometer 441 07/23/22 15:58: Glucometer 218 07/23/22 20:11: Glucometer 203 07/24/22 05:05: Glucometer 148 07/24/22 05:06: White Blood Count 10.3, Red Blood Count 5.54, Hemoglobin 15.1, Hematocrit 47, Mean Corpuscular Volume 85, Mean Corpuscular Hemoglobin 27, Mean Corpuscular Hemoglobin Concent 32, Red Cell Distribution Width 14.6, Platelet Count 192, Mean Platelet Volume 10.1, Immature Granulocyte % (Auto) 1, Neutrophils (%) (Auto) 72, Lymphocytes (%) (Auto) 17, Monocytes (%) (Auto) 10, Eosinophils (%) (Auto) 0, Basophils (%) (Auto) 0, Neutrophils # (Auto) 7.4, Lymphocytes # (Auto) 1.7, Monocytes # (Auto) 1.0, Eosinophils # (Auto) 0.0, Basophils # (Auto) 0.0, Immature Granulocyte # (Auto) 0.1, Sodium Level 141, Potassium Level 3.5, Chloride Level 100, Carbon Dioxide Level 30, Anion Gap 11, Blood Urea Nitrogen 18, Creatinine 0.79, Estimat Glomerular Filtration Rate 98, BUN/Creatinine Ratio 23, Glucose Level 153, Calcium Level 9.0, Corrected Calcium 9.4, Magnesium Level 2.1, Total Bilirubin 0.5, Aspartate Amino Transf (AST/SGOT) 17, Alanine Aminotransferase (ALT/SGPT) 21, Alkaline Phosphatase 83, Total Protein 6.0, Albumin 3.5 07/24/22 10:11: Glucometer 236 Discharge Home Medications: Active Scripts Active Cefdinir 300 Mg Capsule 300 Mg PO BID Prednisone 10 Mg Tab.ds.pk 10 Mg PO DAILY Take 4 tabs(40mg)daily,decrease by 1 tab(10MG)daily. Montelukast Sodium 10 Mg Tablet 10 Mg PO HS Lisinopril 20 Mg Tablet 20 Mg PO DAILY Amlodipine Besylate 10 Mg Tablet 10 Mg PO DAILY Eliquis (Apixaban) 5 Mg Tablet 5 Mg PO BID Reported Advair 500-50 Diskus (Fluticasone/Salmeterol) 500 Mcg-50 Mcg/Dose Blst.w.dev 1 Puff INH BID Ventolin Hfa (Albuterol Sulfate) 1 Puff Puff 1-2 Puff INH Q4H PRN Spiriva Respimat 2.5MCG/ACTUATION (Tiotropium [place]ons) 2.5 Mcg/Actuation Mist.inhal 2 Puff INH DAILY Albuterol Sulfate 2.5 Mg/3 Ml (0.083 %) Vial.neb 3 Ml NEB Q6H PRN Metformin HCl 1,000 Mg Tablet 1,000 Mg PO BID Atorvastatin Calcium 40 Mg Tablet 40 Mg PO HS Carvedilol 12.5 Mg Tablet 12.5 Mg PO BID Instructions to patient/family Please see electronic discharge instructions given to patient. LEONELA GONCALVES DO Jul 24, 2022 12:04
[2022-07-24 14:55] VITALS: BP 152/87
== END 2022-07-24 13:27 | disposition home or self-care (01) | DRG 189 ==
LOC: ICU 20:59 → 4TH 07-23 14:04
PROVIDERS: ADMIT Internal Medicine; ATTEND Internal Medicine
PROC: 5A09357 Assistance with Respiratory Ventilation, Less than 24 Consecutive Hours, Continuous Positive Airway Pressure (ICD-10-PCS; 2022-07-20)
PROC: 5A0945A Assistance with Respiratory Ventilation, 24-96 Consecutive Hours, High Flow/Velocity Cannula (ICD-10-PCS; principal; 2022-07-22)
DX: J96.01 Acute respiratory failure with hypoxia (principal); J44.0 Chronic obstructive pulmonary disease with (acute) lower respiratory infection; J44.1 Chronic obstructive pulmonary disease with (acute) exacerbation; J96.02 Acute respiratory failure with hypercapnia; I48.0 Paroxysmal atrial fibrillation; J20.8 Acute bronchitis due to other specified organisms; F17.210 Nicotine dependence, cigarettes, uncomplicated; E78.00 Pure hypercholesterolemia, unspecified; I10 Essential (primary) hypertension; E11.9 Type 2 diabetes mellitus without complications; G47.33 Obstructive sleep apnea (adult) (pediatric); E87.70 Fluid overload, unspecified
CPT/HCPCS: 36415; 36600; 71045; 80053; 82805; 82947; 83735; 84100; 85007; 85025; 85027; 87081; 93306; 94640; 94660; 94664; 94760; 94761

== ENCOUNTER → 2022-08-27 | Outpatient (CLI) | payer MEDICARE, OTHER ==
[~2022-08-27] MED LIST: ALBU2.5V4 NEB; AMLO-251 PO; APIX5TAB PO; ATOR40TA70 PO; CARV12.53 PO; CEFD300C3 PO; FLUT1DIS27 INH; LISI20TA26 PO; LISI30TA5 PO; METF-399 PO; MONT-40 PO; NFD60TCR PO; PRED10TA22 PO; RT-ALBUINH INH; TIOT4MIS2 INH
--- NOTE | 2022-08-27 12:59 | Diagnostic Imaging Report ---
EXAMINATION: CHEST (PA AND LATERAL) CLINICAL INDICATION: 66-year-old male, shortness of breath, dyspnea. COMPARISON: June 10, 2015. FINDINGS: Heart size and mediastinal contours are unchanged. There is no identified pneumothorax. There is no pleural effusion. There is no identified focal airspace consolidation. There are degenerative changes of the spine. IMPRESSION: 1. No identified acute cardiopulmonary abnormality. Dictated by: Dictated on workstation # [id number]
== END ==
LOC: RAD FS 11:23
PROVIDERS: ATTEND Nurse Practitioner Family
DX: J44.1 Chronic obstructive pulmonary disease with (acute) exacerbation (principal)
CPT/HCPCS: 71046

== ENCOUNTER 2022-09-03 11:33 | Emergency (ER) | payer MEDICARE, OTHER ==
[~2022-09-03] VITALS: Ht 182.9 cm; Wt 101.2 kg
--- NOTE | 2022-09-03 11:38 | ED Respiratory ---
General Chief Complaint: Respiratory Problems Stated Complaint: SOB History of Present Illness Date Seen by Provider: Sep 03, 2022 Time Seen by Provider: 11:37 Initial Comments 67-year-old male with PMH of COPD on 4 L of oxygen at home/DM2/HTN, is sent here from the clinic with complaints of shortness of breath which has been going for the past 2 days and worsening in nature. In the clinic patient's oxygen saturation was 84% on his 4 L of oxygen. Patient states that he has a nebulizer machine and inhaler at home but he rarely ever uses his inhaler and he ran out of the neb medications a couple of months ago. Patient's states that he never uses his inhaler and has not used in the past 2 days since the shortness of breath has worsened. Patient also has associated bilateral pedal edema which has been going on for the past couple of weeks. Patient's PCP has prescribed him Lasix which he states he takes every day. Patient denies any history of heart failure that he knows of. Patient had a clean heart cath 2 years ago. Denies fever and chills, cough, congestion, chest pain, palpitations, abdominal pain. Allergies and Home Medications Allergies Coded Allergies: dexmedetomidine (Verified Adverse Reaction, Severe, AGITATION, 07/23/22) Patient Home Medication List Home Medication List Reviewed: Yes Albuterol Sulfate (Albuterol Sulfate) 2.5 Mg/3 Ml (0.083 %) Vial.neb, 3 ML NEB Q6H PRN for SHORTNESS OF BREATH, (Reported) Entered as Reported by: SAMUEL HAQUE on 07/21/22 155 Albuterol Sulfate (Ventolin Hfa) 1 Puff Puff, 1-2 PUFF INH Q4H PRN for SHORTNESS OF BREATH, (Reported) Entered as Reported by: SAMUEL HAQUE on 07/21/22 155 Amlodipine Besylate (Amlodipine Besylate) 10 Mg Tablet, 10 MG PO DAILY Prescribed by: LEONELA GONCALVES on 07/24/22 120 Apixaban (Eliquis) 5 Mg Tablet, 5 MG PO BID Prescribed by: LEONELA GONCALVES on 07/24/22 1203 Atorvastatin Calcium (Atorvastatin Calcium) 40 Mg Tablet, 40 MG PO HS, (Reported) Entered as Reported by: SAMUEL HAQUE on 07/21/22 155 Carvedilol (Carvedilol) 12.5 Mg Tablet, 12.5 MG PO BID, (Reported) Entered as Reported by: SAMUEL HAQUE on 07/21/22 155 Cefdinir (Cefdinir) 300 Mg Capsule, 300 MG PO BID Prescribed by: LEONELA GONCALVES on 07/24/22 120 Fluticasone/Salmeterol (Advair 500-50 Diskus) 500 Mcg-50 Mcg/Dose Blst.w.dev, 1 PUFF INH BID, (Reported) Entered as Reported by: SAMUEL HAQUE on 07/22/22 1305 Lisinopril (Lisinopril) 20 Mg Tablet, 20 MG PO DAILY Prescribed by: LEONELA GONCALVES on 07/24/22 120 Metformin HCl (Metformin HCl) 1,000 Mg Tablet, 1,000 MG PO BID, (Reported) Entered as Reported by: SAMUEL HAQUE on 07/21/22 155 Montelukast Sodium (Montelukast Sodium) 10 Mg Tablet, 10 MG PO HS Prescribed by: LEONELA GONCALVES on 07/24/22 120 Prednisone (Prednisone) 10 Mg Tab.ds.pk, 10 MG PO DAILY Prescribed by: LEONELA GONCALVES on 07/24/22 120 Tiotropium West (Spiriva Respimat 2.5MCG/ACTUATION) 2.5 Mcg/Actuation Mist.inhal, 2 PUFF INH DAILY, (Reported) Entered as Reported by: SAMUEL HAQUE on 07/21/22 155 Review of Systems Review of Systems Constitutional: no symptoms reported EENTM: no symptoms reported Respiratory: short of breath Cardiovascular: no symptoms reported Gastrointestinal: no symptoms reported Genitourinary: no symptoms reported Musculoskeletal: no symptoms reported Skin: no symptoms reported Psychiatric/Neurological: No Symptoms Reported Hematologic/Lymphatic: No Symptoms Reported Immunological/Allergic: no symptoms reported Past Pxquavo-Fpivwk-Puvdjk Hx Past Medical History High Cholesterol, Hypertension Physical Exam Vital Signs - First Documented Capillary Refill : Height: '" Weight: lbs. oz. kg; 30.43 BMI Method: General Appearance: WD/WN, no apparent distress (Patient is able to speak in clear sentences and does not have any shortness of breath while speaking.) HEENT: PERRL/EOMI, normal ENT inspection, pharynx normal Neck: non-tender, full range of motion Respiratory: chest non-tender, normal breath sounds, no respiratory distress, no accessory muscle use, decreased breath sounds (In bilateral lower lobes) Cardiovascular: regular rate, rhythm Gastrointestinal: non tender, soft Extremities: normal range of motion, no calf tenderness, pedal edema (Bilateral nonpitting) Neurologic/Psychiatric: alert, normal mood/affect, oriented x 3 Skin: normal color Focused Exam Lactate Level 09/03/22 11:40: Lactic Acid Level 1.12 Lactic Acid Level Laboratory Tests Test 09/03/22 11:40 Lactic Acid Level 1.12 MMOL/L (0.50-2.00) Progress/Results/Core Measures Suspected Sepsis SIRS Temperature: Pulse: Respiratory Rate: Laboratory Tests 09/03/22 11:40: White Blood Count 10.6 Blood Pressure / Mean: 09/03/22 11:40: Lactic Acid Level 1.12 Laboratory Tests 09/03/22 11:40: Creatinine 0.68, INR Comment 1.0, Platelet Count 175, Total Bilirubin 1.2H Results/Orders Lab Results Laboratory Tests Test 09/03/22 11:40 09/03/22 12:23 Range/Units White Blood Count 10.6 4.3-11.0 10^3/uL Red Blood Count 5.82 H 4.30-5.52 10^6/uL Hemoglobin 15.7 13.3-17.7 g/dL Hematocrit 50 40-54 % Mean Corpuscular Volume 86 80-99 fL Mean Corpuscular Hemoglobin 27 25-34 pg Mean Corpuscular Hemoglobin Concent 32 32-36 g/dL Red Cell Distribution Width 17.6 H 10.0-14.5 % Platelet Count 175 130-400 10^3/uL Mean Platelet Volume 10.1 9.0-12.2 fL Immature Granulocyte % (Auto) 0 % Neutrophils (%) (Auto) 77 H 42-75 % Lymphocytes (%) (Auto) 14 12-44 % Monocytes (%) (Auto) 8 0-12 % Eosinophils (%) (Auto) 1 0-10 % Basophils (%) (Auto) 0 0-10 % Neutrophils # (Auto) 8.2 H 1.8-7.8 10^3/uL Lymphocytes # (Auto) 1.5 1.0-4.0 10^3/uL Monocytes # (Auto) 0.8 0.0-1.0 10^3/uL Eosinophils # (Auto) 0.1 0.0-0.3 10^3/uL Basophils # (Auto) 0.0 0.0-0.1 10^3/uL Immature Granulocyte # (Auto) 0.0 0.0-0.1 10^3/uL Prothrombin Time 13.3 12.2-14.7 SEC INR Comment 1.0 0.8-1.4 Activated Partial Thromboplast Time 27 24-35 SEC D-Dimer 1.23 H 0.00-0.49 UG/ML Sodium Level 143 135-145 MMOL/L Potassium Level 4.3 3.6-5.0 MMOL/L Chloride Level 100 98-107 MMOL/L Carbon Dioxide Level 34 H 21-32 MMOL/L Anion Gap 9 5-14 MMOL/L Blood Urea Nitrogen 11 7-18 MG/DL Creatinine 0.68 0.60-1.30 MG/DL Estimat Glomerular Filtration Rate 102 BUN/Creatinine Ratio 16 Glucose Level 156 H 70-105 MG/DL Lactic Acid Level 1.12 0.50-2.00 MMOL/L Calcium Level 9.6 8.5-10.1 MG/DL Corrected Calcium 9.2 8.5-10.1 MG/DL Magnesium Level 1.8 1.6-2.4 MG/DL Total Bilirubin 1.2 H 0.1-1.0 MG/DL Aspartate Amino Transf (AST/SGOT) 14 5-34 U/L Alanine Aminotransferase (ALT/SGPT) 12 0-55 U/L Alkaline Phosphatase 158 H 40-136 U/L Troponin I < 0.30 <0.30 NG/ML Pro-B-Type Natriuretic Peptide 176.5 H <125.0 PG/ML Total Protein 7.4 6.4-8.2 GM/DL Albumin 4.5 3.2-4.5 GM/DL Influenza Type A (RT-PCR) Not Detected Not Detecte Influenza Type B (RT-PCR) Not Detected Not Detecte SARS-CoV-2 RNA (RT-PCR) Not Detected Not Detecte My Orders Orders - LEODAN DURON MD Chest 1 View Ap/Pa Only (09/03/22 11:38) Covid 19 Inhouse Test (09/03/22 11:38) Influenza A And B By Pcr (09/03/22 11:38) Cbc With Automated Diff (09/03/22 11:39) Comprehensive Metabolic Panel (09/03/22 11:39) Fibrin Degradation Products (09/03/22 11:39) Lactic Acid Analyzer (09/03/22 11:39) Magnesium (09/03/22 11:39) Protime With Inr (09/03/22 11:39) Partial Thromboplastin Time (09/03/22 11:39) Probnp Fs (09/03/22 11:39) Troponin I Fs (09/03/22 11:39) Albuterol/Ipra Inhalation Soln (Duoneb I (09/03/22 11:45) Methylprednisolone Sod Succ (Solu-Medrol (09/03/22 11:39) Svn Small Volume Nebulizer (09/03/22 11:39) Ekg Tracing (09/03/22 11:49) Albuterol/Ipra Inhalation Soln (Duoneb I (09/03/22 12:45) Svn Small Volume Nebulizer (09/03/22 12:35) Ct Angio Chest W (R/O Pe) (09/03/22 13:20) Iohexol Injection (Omnipaque 350 Mg/Ml 1 (09/03/22 13:30) Received Contrast (Hold Metformin- Contr (09/03/22 13:30) Ns (Ivpb) (Sodium Chloride 0.9% Ivpb Bag (09/03/22 13:30) Ct Angio Chest W (R/O Pe) (09/03/22 ) Blood Culture (09/03/22 14:23) Azithromycin Injection (Zithromax Inject (09/03/22 14:23) Esmolol Injection (Brevibloc Injection) (09/03/22 15:00) Medications Given in ED Current Medications Medications Dose Ordered Sig/Sumit Route Start Time Stop Time Status Last Admin Dose Admin Albuterol/ Ipratropium 3 ml ONCE ONCE INH 09/03/22 11:45 09/03/22 11:46 DC 09/03/22 12:05 3 ML Albuterol/ Ipratropium 3 ml ONCE ONCE INH 09/03/22 12:45 09/03/22 12:46 DC 09/03/22 13:17 3 ML Iohexol 100 ml ONCE ONCE IV 09/03/22 13:30 09/03/22 13:35 DC 09/03/22 13:50 100 ML Sodium Chloride 100 ml ONCE ONCE IV 09/03/22 13:30 09/03/22 13:35 DC 09/03/22 13:50 100 ML Vital Signs/I&O 09/03/22 09/03/22 11:33 11:33 Temp 36.3 Pulse 79 Resp 23 B/P (MAP) 166/91 (116) Pulse Ox 96 O2 Delivery Nasal Cannula Nasal Cannula O2 Flow Rate 4.00 4.00 Capillary Refill : Progress Note : Progress Note 1. ASCENDING AORTIC DISSECTION: - CTA CHEST: Small dissection of the ascending thoracic aorta and aortic arch. Atelectasis or pneumonia within the lingula. - D-dimer: 1.23 - Initially spoke with cardiovascular surgeon at [facility], Dr Viera at 14:06, and stated that unable to accept due to pt's COPD status causing increased difficulty for surgery and lack of resources at [place] to support complications of COPD during surgery. - [facility] Discussed with hospitalist and cardiovascular surgeon, and accepted for transfer. Recommended Esmolol for eleva maria l BP. - Esmolol 80mg iv STAT 2. ACUTE COPD EXACERBATION: - CXR: unremarkable -Patient is on 4 L of oxygen at home, baseline, and in the ER does not require more than 4 L. In the ER oxygen saturation is ranging between 94% to 98% - Labs: overll unremarkable - Solumedrol 125mg iv STAT - Duo Neb x2 ,with mild to moderate improvement of SOB 3. PNEUMONIA: -As read on CT scan -White count normal -COVID test and rapid flu test are negative -Azithromycin 1 g IV given in ER Diagnostic Imaging Diagonstic Imaging: Xray, CT Plain Films/CT/US/NM/MRI: chest Comments [facility], [place] NAME: ERI[facility]ERT[facility]ES [facility] REC#: [id number] PT STATUS: REG ER : 1955 PHYSICIAN: LEODAN DURON MD ADMIT DATE: 09/03/22/ER FS Signed Date of Exam:09/03/22 CT ANGIO CHEST W (R/O PE) EXAMINATION: CT angiography of the chest. TECHNIQUE: Contrast enhanced thin section helical images were obtained through the chest with intravenous contrast timed for the optimal opacification of the arterial structures per CTA protocol. Post-processing, reconstructions and interpretation of angiographic images of the vessels was performed. 3D MIP reconstructions were performed and reviewed. All CT scans use one or more of the following dose optimizing techniques: automated exposure control, MA and/or KvP adjustment based on a patient size and exam type, or iterative reconstruction. HISTORY: SOB, ELEVATED D-DIMER COMPARISON: None available. FINDINGS: Vascular: There are no filling defects within the pulmonary arteries. There is a small dissection of the ascending thoracic aorta and aortic arch. Thyroid: The thyroid is normal. Mediastinum: Heart size is normal without significant pericardial effusion. No suspicious lymphadenopathy. Lungs and airways: The lungs are clear without consolidation, pleural effusion, or pneumothorax. There is mild atelectasis or groundglass within the lingula. The airways are normal. Upper abdomen: There is an enlarged gastrohepatic lymph node measuring 3.3 x 2.0 cm. Musculoskeletal: Degenerative changes of the spine without suspicious osseous lesion or compression fracture. IMPRESSION: 1. No findings of pulmonary embolus. 2. Small dissection of the ascending thoracic aorta and aortic arch. 3. Atelectasis or pneumonia within the lingula. 4. Indeterminate enlarged gastrohepatic lymph node. Critical finding. Results communicated to Dr. Duron by Dr. Tin Cohn at 2:00 PM on 09/03/2022. Dictated by: Dictated on workstation # [id number] Dict: 09/03/22 1354 Trans: 09/03/22 1413 [id number] Interpreted by: PARVEEN COHN DO Electronically signed by: PARVEEN COHN DO 09/03/22 1413 NAME: ERIBERTO [facility]ES [facility] REC#: [id number] PT STATUS: REG ER : 1955 PHYSICIAN: LEODAN DURON MD ADMIT DATE: 09/03/22/ER FS Draft Date of Exam:09/03/22 CHEST 1 VIEW AP/PA ONLY Clinical indications: Patient with shortness of breath. EXAM: Portable chest x-ray upright view. COMPARISON: Chest x-ray dated 07/23/2022. FINDINGS: Lungs/pleura: There is discoid curvilinear opacities involving left lung base likely representing atelectasis. There is no lung infiltrate. There is no pneumothorax. There is no pleural effusion. Mediastinum: Unremarkable. Pulmonary vasculature: Unremarkable. Heart: Unremarkable. Bones/extrathoracic soft tissue: There is no significant abnormality. IMPRESSION: There is no radiographic evidence of acute cardiopulmonary process. There is mild left basilar atelectasis. Dictated on workstation # [id number] Dict: 09/03/22 1228 Trans: 09/03/22 1231 [facility] [id number] Interpreted by: AMANDA JOVEL MD Electronically signed by: Reviewed: Discussed w/Radiologist Departure Communication (Admissions) Time/Spoke to Admitting Phy: 14:35 [facility]. Discussed with hospitalist, Dr Melo, and cardiovascular surgeon, and accepted for transfer. Recommended Esmolol for elevated BP. Time/Spoke to Consulting Phy: 14:[address] Petersen Impression Primary Impression: Ascending aortic dissection Additional Impressions: Acute exacerbation of chronic obstructive pulmonary disease (COPD) Pneumonia Disposition: XF [facility] BEDS AT THE [facility] Condition: Stable Admissions Decision to Admit Reason: Admit from ER (General) Decision to Admit/Date: Sep 03, 2022 Time/Decision to Admit Time: 14:00 Transfer Transfer Reason: Exceeds level of care Time Spoke to Accepting Phy: 14:35 Transfer Progress Notes [facility] Discussed with hospitalist, Dr Melo, and cardiovascular surgeon, Dr Petersen, and accepted for transfer. Transfer [facility] Method of Transfer: EMS Departure-Patient Inst. Referrals: BETTY NORRIS DO (PCP) Primary Care Physician LEODAN DURON MD Sep 03, 2022 11:38
[2022-09-03] MEDS ORDERED: methylPREDNISolone 125 MG (Solu-MEDROL) VIAL IV STA (11:39)
[2022-09-03] MEDS ORDERED: RT-ALBUTEROL/IPRATROPIUM 3 ML (DUONEB) VIAL INH ONE ×2 (11:45→12:45)
[2022-09-03 11:51] LABS: BASOPHILS % (AUTO) 0 % (0-10); EOSINOPHILS # (AUTO) 0.1 10^3/uL (0.0-0.3); EOSINOPHILS % (AUTO) 1 % (0-10); HEMATOCRIT 50 % (40-54); HEMOGLOBIN 15.7 g/dL (13.3-17.7); LYMPHOCYTES # (AUTO) 1.5 10^3/uL (1.0-4.0); LYMPHOCYTES % (AUTO) 14 % (12-44); MEAN CORPUSCULAR HEMOGLOBIN 27 pg (25-34); MEAN CORPUSCULAR HGB CONC 32 g/dL (32-36); MEAN CORPUSCULAR VOLUME 86 fL (80-99); MEAN PLATELET VOLUME 10.1 fL (9.0-12.2); MONOCYTES # (AUTO) 0.8 10^3/uL (0.0-1.0); MONOCYTES % (AUTO) 8 % (0-12); NEUTROPHILS # (AUTO) 8.2 10^3/uL (1.8-7.8); NEUTROPHILS % (AUTO) 77 % (42-75); PLATELET COUNT 175 10^3/uL (130-400); WHITE BLOOD COUNT 10.6 10^3/uL (4.3-11.0)
[2022-09-03 12:16] LABS: CHLORIDE 100 MMOL/L (98-107); POTASSIUM 4.3 MMOL/L (3.6-5.0); SODIUM 143 MMOL/L (135-145)
[2022-09-03 12:17] LABS: ALANINE AMINOTRANSFERASE 12 U/L (0-55); ALKALINE PHOSPHATASE 158 U/L (40-136); BILIRUBIN,TOTAL 1.2 MG/DL (0.1-1.0); BUN/CREATININE RATIO 16; CALCIUM 9.6 MG/DL (8.5-10.1); CARBON DIOXIDE 34 MMOL/L (21-32); CREATININE SERUM 0.68 MG/DL (0.60-1.30); GFR ESTIMATED 102; GLUCOSE 156 MG/DL (70-105); MAGNESIUM 1.8 MG/DL (1.6-2.4); TOTAL PROTEIN 7.4 GM/DL (6.4-8.2)
[2022-09-03 12:18] LABS: ALBUMIN 4.5 GM/DL (3.2-4.5)
--- NOTE | 2022-09-03 12:32 | Diagnostic Imaging Report ---
Clinical indications: Patient with shortness of breath. EXAM: Portable chest x-ray upright view. COMPARISON: Chest x-ray dated 07/23/2022. FINDINGS: Lungs/pleura: There is discoid curvilinear opacities involving left lung base likely representing atelectasis. There is no lung infiltrate. There is no pneumothorax. There is no pleural effusion. Mediastinum: Unremarkable. Pulmonary vasculature: Unremarkable. Heart: Unremarkable. Bones/extrathoracic soft tissue: There is no significant abnormality. IMPRESSION: There is no radiographic evidence of acute cardiopulmonary process. There is mild left basilar atelectasis. Dictated by: Dictated on workstation # [id number]
[2022-09-03 12:46] LABS: FIBRIN DEGRADATION PRODUCTS 1.23 UG/ML (0.00-0.49); PROTHROMBIN TIME PATIENT 13.3 SEC (12.2-14.7)
[2022-09-03] MEDS ORDERED: IOHEXOL 350 MG/ML 100 ML (OMNIPAQUE 350) VIAL IV ONE (13:30)
[2022-09-03] MEDS ORDERED: NS 100 ML (IVPB) BAG IV ONE (13:30)
[2022-09-03] MEDS ORDERED: HOLD METFORMIN - RECEIVED CONTRAST 20 ML VIAL IV SCH (13:30)
--- NOTE | 2022-09-03 14:09 | Diagnostic Imaging Report ---
EXAMINATION: CT angiography of the chest. TECHNIQUE: Contrast enhanced thin section helical images were obtained through the chest with intravenous contrast timed for the optimal opacification of the arterial structures per CTA protocol. Post-processing, reconstructions and interpretation of angiographic images of the vessels was performed. 3D MIP reconstructions were performed and reviewed. All CT scans use one or more of the following dose optimizing techniques: automated exposure control, MA and/or KvP adjustment based on a patient size and exam type, or iterative reconstruction. HISTORY: SOB, ELEVATED D-DIMER COMPARISON: None available. FINDINGS: Vascular: There are no filling defects within the pulmonary arteries. There is a small dissection of the ascending thoracic aorta and aortic arch. Thyroid: The thyroid is normal. Mediastinum: Heart size is normal without significant pericardial effusion. No suspicious lymphadenopathy. Lungs and airways: The lungs are clear without consolidation, pleural effusion, or pneumothorax. There is mild atelectasis or groundglass within the lingula. The airways are normal. Upper abdomen: There is an enlarged gastrohepatic lymph node measuring 3.3 x 2.0 cm. Musculoskeletal: Degenerative changes of the spine without suspicious osseous lesion or compression fracture. IMPRESSION: 1. No findings of pulmonary embolus. 2. Small dissection of the ascending thoracic aorta and aortic arch. 3. Atelectasis or pneumonia within the lingula. 4. Indeterminate enlarged gastrohepatic lymph node. Critical finding. Results communicated to Dr. Perez by Dr. Tin Schrader at 2:00 PM on 09/03/2022. Dictated by: Dictated on workstation # [id number]
[2022-09-03] MEDS ORDERED: AZITHROMYCIN INJECTION 500 MG in NS (IVPB) 250 ML IV STA (14:23)
[2022-09-03] MEDS ORDERED: ESMOLOL 100 MG/10 ML (BREVIBLOC) VIAL IV ONE (15:00)
[2022-09-03] MEDS ORDERED: LORazepam 0.5 MG (ATIVAN) TABLET PO STA (15:57)
[2022-09-03 16:20] VITALS: BP 170/82
== END 2022-09-03 18:00 | disposition short-term general hospital (02) ==
LOC: EDUNIT# 11:33 → ER FS 11:34
DX: J44.1 Chronic obstructive pulmonary disease with (acute) exacerbation (principal); J18.9 Pneumonia, unspecified organism; I71.00 Dissection of unspecified site of aorta; Z79.899 Other long term (current) drug therapy; Z99.81 Dependence on supplemental oxygen; Z20.822 Contact with and (suspected) exposure to COVID-19; Z28.310 Unvaccinated for COVID-19
CPT/HCPCS: 36415; 71045; 71275; 80053; 83605; 83735; 83880; 84484; 85025; 85379; 85610; 85730; 87040; 87636; 93005; Q9967